=== PATIENT | female | born 1945 | race Caucasian/White ===

== ENCOUNTER → 2016-11-28 | Outpatient (CLI) | payer OTHER, BC ==
--- NOTE | 2016-11-28 15:22 | MAMMOGRAPHY REPORT ---
BILATERAL DIGITAL DIAGNOSTIC MAMMOGRAM TOMOSYNTHESIS WITH CAD: 11/28/2016 CLINICAL HISTORY: 70-year-old woman with a personal history of left breast cancer status post treatm ent 1 year ago. Patient presents for annual bilateral screening mammography. TECHNIQUE: Bilateral breast tomosynthesis in addition to standard 2D mammography was performed. Spo t magnification left CC and ML views were performed in the superior and inferior, medial and lateral breast. Current study was also evaluated with a Computer Aided Detection (CAD) system. COMPARISON: Comparison is made to exams dated: 11/29/2015 mammogram, 05/31/2016 mammogram, 11/22/2015 ma mmogram - [facility], and 10/17/2013 mammogram. BREAST COMPOSITION: There are scattered areas of fibroglandular density in both breasts. FINDINGS: A linear scar marker overlies the upper outer middle one third of the left breast, denoti ng the surgical scar from recent lumpectomy. There is expected underlying architectural distortion. No new suspicious mass, architectural distortion or suspicious calcifications are seen near the basurto rgical site. There is asymmetry and architectural distortion in the approximate 9:00 left breast. This asymmetry has been present and is unchanged on all available prior mammograms dating back to at least 2006, and is likely related to previous surgery. There are faint microcalcifications within this area of asymmetry that have also been present dating back to at least 2007. However, on the cu rrent tomosynthesis images the microcalcifications appear more conspicuous and somewhat linear. Alt chayito they could represent fat necrosis, definitive characterization with tissue sampling is recomme nded. No other new suspicious microcalcifications, new mass or focal architectural distortion is id entified bilaterally. IMPRESSION: ACR BI-RADS CATEGORY 4B: INTERMEDIATE SUSPICION FOR MALIGNANCY 1. Left breast stereotactic guided biopsy is recommended for a faint cluster of linear and amorphou s microcalcifications associated with a stable asymmetry in the 9:00 left breast. 2. Otherwise stable posttreatment changes in the left breast and stable mammographic appearance of the right breast, without mammographic evidence of malignancy. Pending benign pathology results, wo uld recommend another 6 month follow-up of the left breast for continued surveillance after treatmen t for breast cancer. Routine mammography of the right breast is recommended in 12 months. These results and recommendations were discussed with the patient at the time of the exam. She tent atively scheduled for left breast stereotactic biopsy prior to leaving our department. Approximately 10% of breast cancers are not detected with mammography. A negative mammographic repor t should not delay biopsy if a clinically suggestive mass is present. Amelie Albrecht M.D. ay/:11/28/2016 15:05:18 Perishable Freight Inspector: Lionel GARCIA([place])([place]), [facility] letter sent: Abnormal 4/5 BI-RADS Code: ACR BI-RADS Category 4B: Intermediate Suspicion For Malignancy
== END | disposition home or self-care (01) ==
LOC: C.MAMM 13:27
PROVIDERS: ATTEND Family Medicine
DX: R92.0 Mammographic microcalcification found on diagnostic imaging of breast (principal)

== ENCOUNTER → 2016-12-07 | Outpatient (CLI) | payer OTHER, BC ==
--- NOTE | 2016-12-07 13:32 | Discharge Instructions ---
Discharge Instructions Procedure Procedure Date: Dec 07, 2016. Reason for visit: Left Calcifications. Discharge Discharge Date: Dec 07, 2016. Discharge Diagnosis: status post breast biopsy Instructions Activity Recommendations: Additional Limitations (see below) Return to School/Work: no limitations Recommended Home Diet: No Limitations Provider Instructions: ACTIVITY RECOMMENDATIONS: * No lifting, pushing, pulling or exercising the affected side for three days. RETURN TO SCHOOL/WORK: * You may return to work/school after the procedure, but do not perform any strenuous activities for 24 to 48 hours. MEDICATIONS: * Tylenol (two 325 mg) every four to six hours if needed for mild pain (if not allergic to Tylenol). DIET: * Resume previous diet. SPECIAL CARE INSTRUCTIONS: * Keep biopsy site dry for 24 hours. May shower after 24 hours, but do not soak (bathe) incision. * May remove Tegaderm (plastic patch) tomorrow AFTER showering. * Leave the steri-strips on for one week. Allow the steri-strips to fall off by themselves. If not off after one week, you may remove them. You may place a Bandaid crosswise over the strips, if desired. * Apply ice 10 minutes on and 10 minutes off as needed. * Wear a bra at bedtime to sleep more comfortably for 2-3 days. * Your referring physician should have the results after approximately 5 to 7 business days. * Call for unusual bleeding, fever, drainage, etc or if you have any questions call during normal business hours or after hours call Dr Keller, [phone]. FOLLOW UP VISIT: Follow-up with Referring Physician as scheduled. Rogelio Wong Recommendations: Call your doctor if: * Temperature above 101 degrees * Pain not relieved by pain medicine ordered * There is increased drainage or redness from any incision * You have any unanswered questions or concerns. Your Doctors Instructions noted above were prepared by provider Neema Keller. Patient Signature Section: Patient Instructions Signature Page Haylie Tucker Patient (or Guardian) Signature/Date: I have read and understand the instructions given to me by my caregivers. Caregiver/RN/Doctor Signature/Date: The above-named patient and/or guardian has received patient instructions on this date. + Original Patient Signature Page (only) stays with chart. Please make copy for patient.
--- NOTE | 2016-12-07 15:18 | MAMMOGRAPHY REPORT ---
THIS REPORT HAS BEEN AMENDED. STEREOTACTIC GUIDED BIOPSY LEFT BREAST: 12/07/2016 CLINICAL HISTORY: Left 9:00 breast calcifications. PATIENT CONSENT: The procedure, risks, benefits, and alternatives of stereotactic biopsy with clip p lacement were discussed with the patient, and verbal and written consent was obtained. A timeout wa s performed immediately prior to the procedure. PROCEDURE DESCRIPTION: With stereotactic guidance, aseptic technique, and lidocaine as a local anest hetic (1% lidocaine to anesthetize the skin and 1% lidocaine with epinephrine to anesthetize the neftali per tissues), the area of concern was sampled multiple times with a 9-gauge vacuum-assisted biopsy n eedle (Suros Eviva). The path of approach was medial to lateral. The specimen radiograph demonstra lani possible faint calcifications present within the samples. A metallic marker clip was placed at the biopsy site. This was confirmed on postprocedure mammograms. Direct pressure was applied at th e biopsy site and hemostasis was readily achieved. The patient tolerated the procedure without comp lication. She was given wound care instructions. COMPARISON: Comparison is made to exams dated: 11/28/2016 mammogram, 05/31/2016 mammogram, 11/22/2015 ma mmogram, 11/29/2015 mammogram, 11/05/2014 mammogram, and 04/30/2014 mammogram - [facility]. IMPRESSION: STEREOTACTIC GUIDED BIOPSY Stereotactic biopsy of calcifications in the left 9:00 breast, with clip placement. Possible faint calcifications are seen within the samples. The patient will receive pathology results from her refe rring provider. The pathology results will be reviewed and an addendum will be made if there are further recommendat ions based on the pathology results. Neema Keller M.D. ah/:12/07/2016 13:57:13 Museum Security Chief: Alison Olvera, [facility] AMENDMENT: 12/13/2016 Neema Keller M.D. The pathology from stereotactic biopsy of left breast calcifications was reviewed on 12/13/2016. The pathology shows benign breast tissue with stromal fibrosis and hemosiderin deposition, which is con cordant with the imaging findings. Recommend follow-up diagnostic mammograms of the left breast in 6 months for continued surveillance after treatment for breast cancer.
--- NOTE | 2016-12-07 15:19 | MAMMOGRAPHY REPORT ---
UNILATERAL LEFT DIGITAL DIAGNOSTIC MAMMOGRAM: 12/07/2016 CLINICAL HISTORY: Status post stereotactic biopsy of left 9:00 breast calcifications. TECHNIQUE: Spot magnification left CC and ML views were obtained. COMPARISON: Comparison is made to exams dated: 05/31/2016 mammogram, 11/28/2016 mammogram, 11/22/2015 ma mmogram, 11/29/2015 mammogram, 11/05/2014 mammogram, and 04/30/2014 mammogram - [facility]. BREAST COMPOSITION: There are scattered areas of fibroglandular density in the left breast. FINDINGS: A new biopsy marker clip is seen in the region of the biopsied calcifications in the left 9:00 breast. No significant postbiopsy hematoma is seen. IMPRESSION: POST PROCEDURE IMAGING FOR MARKER PLACEMENT New biopsy marker clip status post stereotactic biopsy of left breast calcifications. Pathology res ults are pending. Approximately 10% of breast cancers are not detected with mammography. A negative mammographic repor t should not delay biopsy if a clinically suggestive mass is present. Neema Keller M.D. ah/:12/07/2016 13:58:24 Geodetic Technician: Alison Olvera, [facility] BI-RADS Code: Post Procedure Imaging For Marker Placement
--- NOTE | 2016-12-29 07:14 | CODING QUERY MEDICAL NECESSITY ---
SUPPORTING DIAGNOSIS NEEDED A supporting diagnosis is required for the test/procedure performed on this patient in order for us to be reimbursed by the patient's insurance. Please provide a supporting diagnosis for the following test/procedure listed below next to the test name along with your signature. *If there is no additional diagnosis for this patient that would support the following test/procedure please document that below next to the test/procedure. Test(s)/Procedure(s) that require a supporting diagnosis: * STEREOTACTIC BREAST BIOPSY DIAGNOSIS: * DOS: 12/07/16 Provider Signature: Date: Thank you Margaret Fink Health Information Management Once completed, please kindly fax back to [phone] For questions please call [phone]
== END | disposition home or self-care (01) ==
LOC: C.MAMM 12:28
PROVIDERS: ATTEND Family Medicine
DX: N60.32 Fibrosclerosis of left breast (principal)

== ENCOUNTER → 2017-03-07 | Outpatient (CLI) | payer OTHER, BC ==
[~2017-03-07] MED LIST: ALPR0.25 PO; ANAS1TAB6 PO; ASPCH81X PO; CALC-354 PO; EZET1TAB30 PO; METO100T44 PO; OLME40TA30 PO; SERT-234 PO; VERA180T33 PO
[2017-03-07 14:56] LABS: BASO % 0.5 %; BASO ABS # 0.03 K/uL (0-0.2); COMPLETE YES; EOS % 1.2 %; HEMATOCRIT 33.3 % (37-47); IG% 0.2 %; LYMPH % 40.4 %; MEAN CORPUSCULAR HEMOGLOBIN 30.5 pg (25-34); MEAN CORPUSCULAR HGB CONC 34.2 g/dl (32-36); MEAN PLATELET VOLUME 9.2 fL (7.4-10.4); NEUT % 51.7 %; PLATELET COUNT 242 K/uL (130-400); RED BLOOD COUNT 3.74 M/uL (4.2-5.4); WHITE BLOOD COUNT 5.69 K/uL (4.8-10.8)
== END | disposition home or self-care (01) ==
LOC: C.LABSPEC 14:05
PROVIDERS: ATTEND Family Medicine
DX: K92.1 Melena (principal)

== ENCOUNTER → 2017-05-30 | Outpatient (CLI) | payer OTHER, BC ==
[2017-05-30 14:11] LABS: BASO % 0.3 %; BASO ABS # 0.02 K/uL (0-0.2); COMPLETE YES; EOS % 1.2 %; HEMATOCRIT 41.1 % (37-47); LYMPH % 35.9 %; LYMPH ABS # 2.06 K/uL (1.2-3.4); MEAN CELL VOLUME 86.9 fL (80-100); MEAN CORPUSCULAR HEMOGLOBIN 29.8 pg (25-34); MEAN CORPUSCULAR HGB CONC 34.3 g/dl (32-36); MEAN PLATELET VOLUME 9.3 fL (7.4-10.4); MONO % 6.1 %; NEUT % 56.5 %; PLATELET COUNT 228 K/uL (130-400); RED BLOOD COUNT 4.73 M/uL (4.2-5.4); WHITE BLOOD COUNT 5.74 K/uL (4.8-10.8)
[2017-05-30 14:43] LABS: ALT/SGPT 44 U/L (12-78); AST/SGOT 29 U/L (15-37); BLOOD UREA NITROGEN 22 mg/dl (7-18); BUN/CREATININE RATIO 24.2 (10-20); CARBON DIOXIDE 34 mmol/L (21-32); CHLORIDE 101 mmol/L (98-107); GLUCOSE 142 mg/dl (70-99); POTASSIUM 3.3 mmol/L (3.5-5.1); SODIUM 140 mmol/L (136-145)
[2017-05-30 14:46] LABS: ALB/GLOB RATIO 1.1 (0.9-2); ALKALINE PHOSPHATASE 78 U/L (45-117); CHOLESTEROL 144 mg/dl (0-200); CHOLESTEROL/HDL RATIO 3.4; HDL CHOLESTEROL 42 mg/dl; LDL CHOLESTEROL CALCULATED 52 mg/dl; TRIGLYCERIDES 250 mg/dl (0-150); VERY LOW DENSITY LIPOPROT CALC 50 mg/dl
== END | disposition home or self-care (01) ==
LOC: C.LABSPEC 13:20
PROVIDERS: ATTEND Family Medicine
DX: I10 Essential (primary) hypertension (principal); E78.2 Mixed hyperlipidemia

== ENCOUNTER → 2017-06-11 | Outpatient (CLI) | payer OTHER, BC ==
--- NOTE | 2017-06-11 13:09 | MAMMOGRAPHY REPORT ---
UNILATERAL LEFT DIGITAL DIAGNOSTIC MAMMOGRAM TOMOSYNTHESIS WITH CAD: 06/11/2017 CLINICAL HISTORY: 71 year-old woman with a personal history of left breast cancer status post breast conservation treatment presents for follow-up in the left breast. She is more recently 6 months post benign stereotactic biopsy of microcalcifications in the medial left breast. TECHNIQUE: Left CC and MLO 2-D and tomosynthesis images, spot magnification left CC and ML views were obtained. Current study was also evaluated with a Computer Aided Detection (CAD) system. COMPARISON: Comparison is made to exams dated: 11/28/2016 mammogram, 05/31/2016 mammogram, 11/22/2015 ult rasound, 11/22/2015 mammogram, 11/05/2014 mammogram, and 04/30/2014 mammogram - [facility]. BREAST COMPOSITION: There are scattered areas of fibroglandular density in the left breast. FINDINGS: There is expected architectural distortion in the upper outer middle one third of the left breast, at the site of prior lumpectomy. There is stable asymmetry and associated faint amorphous mi crocalcifications in the approximate 9:00 left breast, with new associated dumbbell-shaped biopsy mar ker, denoting the site of recent benign stereotactic biopsy. No new suspicious mass, architectural d istortion or new suspicious microcalcifications are identified. IMPRESSION: ACR-BI-RADS CATEGORY 3: PROBABLY BENIGN Stable posttreatment and post biopsy changes in the left breast, without definite mammographic eviden ce of malignancy. The patient is due for bilateral mammography in 6 months, with continued close fol low-up of the left breast status post treatment for breast cancer. These results and recommendations were discussed with the patient at the time of the exam. Approximately 10% of breast cancers are not detected with mammography. A negative mammographic report should not delay biopsy if a clinically suggestive mass is present. Amelie Albrecht M.D. ay/:06/11/2017 10:24:15 Layout Operator: Saida CONNELLY)(M), [facility] letter sent: Follow Up Recommended 3 BI-RADS Code: ACR-BI-RADS Category 3: Probably Benign
== END | disposition home or self-care (01) ==
LOC: C.MAMM 08:58
PROVIDERS: ATTEND Family Medicine
DX: R92.2 Inconclusive mammogram (principal); Z85.3 Personal history of malignant neoplasm of breast

== ENCOUNTER → 2017-09-05 | Day surgery (SDC) | payer OTHER, BC ==
[2017-08-31 08:58] VITALS: Ht 162.6 cm; Wt 94.1 kg
[~2017-09-05] VITALS: Ht 162.6 cm; Wt 94.1 kg
[~2017-09-05] MED LIST changes: +500ML BSS 0.3ML EPI 1:1000PF IRRIG ONE; +ACETAMINOPHEN 325 MG TAB PO PRN; +AMVISC PLUS 0.8ML SYRINGE INT OCU ONE; +ATROPINE SULFATE 0.1 MG/ML 5ML SYR IV PRN; +AcetaZOLAMIDE 250 MG TAB PO SCH; +BETAXOLOL HCL 0.25% OP SUSP PER DROP CHARGE OPR SCH; +BRIMONIDINE TART 0.2% OP SOLN PER DROP CHARGE ONE; +BSS FLUSH ONE; +ENDOCOAT 0.85ML SYRINGE INT OCU ONE; +EpHEDrine SULFATE INJ 50 MG/ML AMP IV PRN; +EpINEphrine INJ 1MG/ML AMP 1 MG/ML AMP ONE; +LACTATED RINGER'S 1000ML 1,000 ML IV SCH; +LIDOCAINE 4% OP SOLN DROP CHARGE ONE; +LIDOCAINE 4% OP SOLN DROP CHARGE OPR SCH; +LIDOCAINE HCL 1% MPF 2 ML VIAL ONE; +MIDAZOLAM HCL 1 MG/ML 2ML VIAL ONE; +MIX: 4ML BSS 1ML EPI 1:1000 PF INSTIL ONE; +MOXIFLOXACIN OPH SOLN PER DROP CHARGE ONE; +OCUCOAT 1 ML SOLN IO ONE; +POVIDONE-IODINE OP SOLN 30 ML BTL ONE; +PROPARACAINE 0.5% OP SOLN PER DROP CHARGE OPR SCH; +TOBRAMYCIN/DEXAMETHASONE OPH OINT PER APPLN CHARGE ONE
--- NOTE | 2017-09-05 07:36 | History & Physical Bridge - SC ---
H&P Re-Evaluation Bridge Note: I have examined the patient, reviewed the History & Physical and in the interval since the performance of the History & Physical I have noted the following changes of clinical significance: No changes noted
[2017-09-05] MEDS: PHENYLEPHRINE HCL 2.5% OP SOLN PER DROP CHARGE OPR SCH ×2 (08:26→08:31)
[2017-09-05] MEDS: TROPICAMIDE 1% OP SOLN PER DROP CHARGE OPR SCH ×2 (08:27→08:32)
[2017-09-05] MEDS: CYCLOPENTOLATE HCL 1% OP SOLN PER DROP CHARGE OPR SCH ×2 (08:28→08:33)
[2017-09-05] MEDS: MOXIFLOXACIN OPH SOLN PER DROP CHARGE OPR SCH ×2 (08:29→08:39)
--- NOTE | 2017-09-05 09:21 | Discharge Instructions-SurgCtr ---
Discharge Instructions Date of Service Sep 05, 2017. Visit Reason for Visit: Right Cataract Discharge Discharge Diagnosis / Problem: lens implant right eye Discharge Goals Goal(s): Improve function Activity Recommendations Activity Limitations: resume your previous activity Lifting Limitations: no more than 10 pounds Exercise/Sports Limitations: gradually increase as tolerated May Resume Sexual Activity: when tolerated Shower/Bathe: tomorrow Driving or Machine Use: resume 1 day after discharge Anesthesia . Post Anesthesia Instructions: If you have had General Anesthesia or IV Sedation: * Do not drive today. * Resume driving when surgeon permits. * Do not make important decisions or sign legal documents today. * Call surgeon for: 1. Temperature elevations greater than 101 degrees F. 2. Uncontrollable pain. 3. Excessive bleeding. 4. Persistent nausea and vomiting. 5. Medication intolerance (nausea, vomiting or rash). * For nausea and vomiting use only clear liquids such as: tea, soda, bouillon until nausea subsides, then gradually increase diet as tolerated. * If you have any concerns or questions, call your surgeon's office. If physician is unavailable and it is an emergency, call 911 or go to the nearest emergency room. . Instructions / Follow-Up Instructions / Follow-Up ACTIVITY RECOMMENDATIONS: * Light activities. * Mild irritation and blurred vision are common for the first few days. * You may walk outside, read, watch television. * Redness around the white part of the eye is common. MEDICATIONS: Resume previous medications unless instructed otherwise by your surgeon. * Take white Diamox (Acetazolamide) tablet at 1 pm today. Start all eye drops at 1 pm today: * Eye drops (today and tomorrow): Prednisone - one drop in operative eye every 3 hours while awake Ofloxacin - one drop in operative eye every 3 hours while awake SPECIAL CARE INSTRUCTIONS: * Tape plastic shield over eye to sleep at night. Call your doctor at with any concerns or problems. FOLLOW UP VISIT: Follow-up with Dr Corado at [place] office as scheduled. Diet Recommendations Home Diet: no limitations Procedures Procedures Performed: cataract extraction with lens implant Pending Studies Studies pending at discharge: no Medical Emergencies . Who to Call and When: Medical Emergencies: If at any time you feel your situation is an emergency, please call 911 immediately. . Non-Emergent Contact Non-Emergency issues call your: Submarine Advisory Team Watch Officer Call Non-Emergent contact if: your pain is not controlled [phone] . . "Provider Documentation" section prepared by Josef Corado. .
--- NOTE | 2017-09-05 09:22 | [facility] Operative Report ---
Operative Report Date of Service Sep 05, 2017. Operative Report 1. PREOPERATIVE DIAGNOSIS: Senile nuclear cataract, right eye. 2. POSTOPERATIVE DIAGNOSIS: Senile nuclear cataract, right eye. 3. PROCEDURE: Phacoemulsification of right cataract with posterior chamber lens implant, type Bausch [employer] Lomb, model MI60L, power +15.0 diopters. ANESTHESIA: Local standby. SURGEON: Dr. Corado. COMPLICATIONS: None. OPERATING TIME: 10 minutes. 4. OPERATION AND FINDINGS: DESCRIPTION OF PROCEDURE: The right pupil was dilated. The anesthetic was administered using a topical technique. The right eye was prepped and draped. A speculum was placed. A clear corneal incision was formed. The chamber was filled with Amvisc Plus and Endocoat. Epinephrine solution was used. A paracentesis was placed. A capsulorrhexis was performed. The nucleus was hydrodissected. The lens was removed with phacoemulsification. Time was 2.32 seconds. The aspiration unit was used to remove the cortex. The capsule was filled with Amvisc Plus. The lens implant was folded and placed into the capsule. The incision was hydrated. The Amvisc was aspirated. The wound was secure. The chamber was deep. The pupil was round. Brimonidine, TobraDex ointment and Vigamox solution were placed. The speculum was removed. The patient was returned to the Recovery Room in stable condition. I attest to the content of the Intraoperative Record and any orders documented therein. Any exceptions are noted below. The scribe's documentation has been prepared in my presence, under my direction and personally reviewed by me in its entirety. I confirm that the note above accurately reflects all work, treatment, procedures, and medical decision making performed by me. I personally scribed for Josef Corado M.D. (SAMUEL) on 09/05/17 at 09:22. Electronically submitted by Claire Rock (AMELIA).
[2017-09-05 09:55] VITALS: BP 152/50; PULSE 47; O2SAT 96
--- NOTE | 2017-09-05 09:57 | Anesthesiology Progress Note ---
Anesthesia Post Op Note Date & Time Sep 05, 2017 at 09:57 Vital Signs Pain Intensity: 0 Vital Signs Past 12 Hours Date Time Temp Pulse Resp B/P (MAP) Pulse Ox O2 Delivery O2 Flow Rate FiO2 09/05/17 09:55 47 16 152/50 (84) 96 Room Air 09/05/17 09:22 36.4 40 16 164/79 (107) 93 Room Air 09/05/17 08:20 36.6 53 16 188/85 (119) 96 Room Air Notes Mental Status: alert / awake / arousable, participated in evaluation Pt Amnestic to Procedure: Yes Nausea / Vomiting: adequately controlled Pain: adequately controlled Airway Patency, RR, SpO2: stable & adequate BP & HR: stable & adequate Hydration State: stable & adequate Anesthetic Complications: no major complications apparent
== END | disposition home or self-care (01) ==
LOC: X.SURG 07:50
PROVIDERS: ATTEND Specialist
DX: H25.11 Age-related nuclear cataract, right eye (principal); F41.9 Anxiety disorder, unspecified; E66.9 Obesity, unspecified; Z85.3 Personal history of malignant neoplasm of breast; Z79.82 Long term (current) use of aspirin; Z98.890 Other specified postprocedural states; Z79.899 Other long term (current) drug therapy

== ENCOUNTER → 2017-09-26 | Day surgery (SDC) | payer OTHER, BC ==
[2017-09-20 11:30] VITALS: Ht 162.6 cm; Wt 94.1 kg
[~2017-09-26] VITALS: Ht 162.6 cm; Wt 94.1 kg
[~2017-09-26] MED LIST changes: +BETAXOLOL HCL 0.25% OP SUSP PER DROP CHARGE OPL SCH; -BETAXOLOL HCL 0.25% OP SUSP PER DROP CHARGE OPR SCH; -LACTATED RINGER'S 1000ML 1,000 ML IV SCH; +LACTATED RINGER'S 1000ML 500 ML IV SCH; +LIDOCAINE 4% OP SOLN DROP CHARGE OPL SCH; -LIDOCAINE 4% OP SOLN DROP CHARGE OPR SCH; +PROPARACAINE 0.5% OP SOLN PER DROP CHARGE OPL SCH; -PROPARACAINE 0.5% OP SOLN PER DROP CHARGE OPR SCH
[2017-09-26] MEDS: PHENYLEPHRINE HCL 2.5% OP SOLN PER DROP CHARGE OPL SCH ×2 (07:59→08:04)
[2017-09-26] MEDS: TROPICAMIDE 1% OP SOLN PER DROP CHARGE OPL SCH ×2 (08:00→08:06)
[2017-09-26] MEDS: CYCLOPENTOLATE HCL 1% OP SOLN PER DROP CHARGE OPL SCH ×2 (08:01→08:07)
[2017-09-26] MEDS: MOXIFLOXACIN OPH SOLN PER DROP CHARGE OPL SCH ×2 (08:02→08:13)
--- NOTE | 2017-09-26 08:44 | Discharge Instructions-SurgCtr ---
Discharge Instructions Date of Service Sep 26, 2017. Visit Reason for Visit: Cataract Left Eye Discharge Discharge Diagnosis / Problem: lens implant left eye Discharge Goals Goal(s): Improve function Activity Recommendations Activity Limitations: resume your previous activity Lifting Limitations: no more than 10 pounds Exercise/Sports Limitations: gradually increase as tolerated May Resume Sexual Activity: when tolerated Shower/Bathe: tomorrow Driving or Machine Use: resume 1 day after discharge Anesthesia . Post Anesthesia Instructions: If you have had General Anesthesia or IV Sedation: * Do not drive today. * Resume driving when surgeon permits. * Do not make important decisions or sign legal documents today. * Call surgeon for: 1. Temperature elevations greater than 101 degrees F. 2. Uncontrollable pain. 3. Excessive bleeding. 4. Persistent nausea and vomiting. 5. Medication intolerance (nausea, vomiting or rash). * For nausea and vomiting use only clear liquids such as: tea, soda, bouillon until nausea subsides, then gradually increase diet as tolerated. * If you have any concerns or questions, call your surgeon's office. If physician is unavailable and it is an emergency, call 911 or go to the nearest emergency room. . Instructions / Follow-Up Instructions / Follow-Up ACTIVITY RECOMMENDATIONS: * Light activities. * Mild irritation and blurred vision are common for the first few days. * You may walk outside, read, watch television. * Redness around the white part of the eye is common. MEDICATIONS: Resume previous medications unless instructed otherwise by your surgeon. * Take white Diamox (Acetazolamide) tablet at 1 pm today. Start all eye drops at 1 pm today: * Eye drops (today and tomorrow): Prednisone - one drop in operative eye every 3 hours while awake Ofloxacin - one drop in operative eye every 3 hours while awake SPECIAL CARE INSTRUCTIONS: * Tape plastic shield over eye to sleep at night. Call your doctor at with any concerns or problems. FOLLOW UP VISIT: Follow-up with Dr Corado at [facility] as scheduled. Diet Recommendations Home Diet: no limitations Procedures Procedures Performed: cataract extraction with lens implant Pending Studies Studies pending at discharge: no Medical Emergencies . Who to Call and When: Medical Emergencies: If at any time you feel your situation is an emergency, please call 911 immediately. . Non-Emergent Contact Non-Emergency issues call your: Network Mgr Call Non-Emergent contact if: your pain is not controlled [phone] . . "Provider Documentation" section prepared by Josef Corado. .
--- NOTE | 2017-09-26 08:46 | [facility] Operative Report ---
Operative Report Date of Service Sep 26, 2017. Operative Report 1. PREOPERATIVE DIAGNOSIS: Senile nuclear cataract, left eye. 2. POSTOPERATIVE DIAGNOSIS: Senile nuclear cataract, left eye. 3. PROCEDURE: Phacoemulsification of left cataract with posterior chamber lens implant, type Bausch [employer] Lomb, model MI60L, power +17.0 diopters. ANESTHESIA: Local standby. SURGEON: Dr. Corado. COMPLICATIONS: None. OPERATING TIME: 10 minutes. 4. OPERATION AND FINDINGS: DESCRIPTION OF PROCEDURE: The left pupil was dilated. The anesthetic was administered using a topical technique. The left eye was prepped and draped. A speculum was placed. A clear corneal incision was formed. The chamber was filled with Amvisc Plus and Endocoat. Epinephrine solution was used. A paracentesis was placed. A capsulorrhexis was performed. The nucleus was hydrodissected. The lens was removed with phacoemulsification. Time was 2.16 seconds. The aspiration unit was used to remove the cortex. The capsule was filled with Amvisc Plus. The lens implant was folded and placed into the capsule. The incision was hydrated. The Amvisc was aspirated. The wound was secure. The chamber was deep. The pupil was round. Brimonidine, TobraDex ointment and Vigamox solution were placed. The speculum was removed. The patient was returned to the Recovery Room in stable condition. I attest to the content of the Intraoperative Record and any orders documented therein. Any exceptions are noted below. The scribe's documentation has been prepared in my presence, under my direction and personally reviewed by me in its entirety. I confirm that the note above accurately reflects all work, treatment, procedures, and medical decision making performed by me. I personally scribed for Josef Corado M.D. (SAMUEL) on 09/26/17 at 08:46. Electronically submitted by Claire Rock (AMELIA).
[2017-09-26 08:50] VITALS: TEMP 36.3
--- NOTE | 2017-09-26 09:08 | Anesthesia Progress Nt - [facility] ---
Anesthesia Post Op Note Date & Time Sep 26, 2017 at 09:08 Vital Signs Pain Intensity: 0 Vital Signs Past 12 Hours Date Time Temp Pulse Resp B/P (MAP) Pulse Ox O2 Delivery O2 Flow Rate FiO2 09/26/17 08:50 36.3 46 18 161/88 (112) 94 Room Air 09/26/17 07:50 36.6 46 18 159/95 (116) 94 Room Air Notes Mental Status: alert / awake / arousable, participated in evaluation Pt Amnestic to Procedure: Yes Nausea / Vomiting: adequately controlled Pain: adequately controlled Airway Patency, RR, SpO2: stable & adequate BP & HR: stable & adequate Hydration State: stable & adequate Anesthetic Complications: no major complications apparent
[2017-09-26 09:14] VITALS: O2SAT 97
[2017-09-26 09:29] VITALS: BP 155/87; PULSE 50
== END | disposition home or self-care (01) ==
LOC: X.SURG 07:05
PROVIDERS: ATTEND Specialist
DX: H25.12 Age-related nuclear cataract, left eye (principal); I10 Essential (primary) hypertension; E78.00 Pure hypercholesterolemia, unspecified; F41.9 Anxiety disorder, unspecified; E66.9 Obesity, unspecified; E78.5 Hyperlipidemia, unspecified; M06.9 Rheumatoid arthritis, unspecified; Z85.3 Personal history of malignant neoplasm of breast; Z79.82 Long term (current) use of aspirin
CPT/HCPCS: 0474T; 66984

== ENCOUNTER → 2017-11-23 | Outpatient (CLI) | payer OTHER, BC ==
[~2017-11-23] MED LIST changes: -500ML BSS 0.3ML EPI 1:1000PF IRRIG ONE; -ACETAMINOPHEN 325 MG TAB PO PRN; -AMVISC PLUS 0.8ML SYRINGE INT OCU ONE; -ATROPINE SULFATE 0.1 MG/ML 5ML SYR IV PRN; -AcetaZOLAMIDE 250 MG TAB PO SCH; -BETAXOLOL HCL 0.25% OP SUSP PER DROP CHARGE OPL SCH; -BRIMONIDINE TART 0.2% OP SOLN PER DROP CHARGE ONE; -BSS FLUSH ONE; -ENDOCOAT 0.85ML SYRINGE INT OCU ONE; -EpHEDrine SULFATE INJ 50 MG/ML AMP IV PRN; -EpINEphrine INJ 1MG/ML AMP 1 MG/ML AMP ONE; -LACTATED RINGER'S 1000ML 500 ML IV SCH; -LIDOCAINE 4% OP SOLN DROP CHARGE ONE; -LIDOCAINE 4% OP SOLN DROP CHARGE OPL SCH; -LIDOCAINE HCL 1% MPF 2 ML VIAL ONE; -MIDAZOLAM HCL 1 MG/ML 2ML VIAL ONE; -MIX: 4ML BSS 1ML EPI 1:1000 PF INSTIL ONE; -MOXIFLOXACIN OPH SOLN PER DROP CHARGE ONE; -OCUCOAT 1 ML SOLN IO ONE; -POVIDONE-IODINE OP SOLN 30 ML BTL ONE; -PROPARACAINE 0.5% OP SOLN PER DROP CHARGE OPL SCH; -TOBRAMYCIN/DEXAMETHASONE OPH OINT PER APPLN CHARGE ONE
--- NOTE | 2017-11-23 12:19 | DIAGNOSTIC IMAGING REPORT ---
SI JOINTS 3 OR MORE VIEWS CLINICAL HISTORY: LOW BACK pain COMPARISON STUDY: None FINDINGS: Patent sacroiliac joints. No evidence of bony ankylosis or significant sclerosis. Sacral foramina are symmetric bilaterally. IMPRESSION: Negative study of the sacroiliac joints The above report was generated using voice recognition software. It may contain grammatical, syntax or spelling errors. Electronically signed by: Vin De La Rosa M.D. 11/23/2017 12:18 PM Dictated Date/Time: 11/23/2017 12:16 PM
--- NOTE | 2017-11-23 12:21 | DIAGNOSTIC IMAGING REPORT ---
L-SPINE MIN 4 VIEWS ROUTINE CLINICAL HISTORY: Low back pain with left leg radiculopathy. COMPARISON STUDY: No previous studies for comparison. FINDINGS: There is no pathologic bowel dilatation. There are multiple pelvic basin calcifications likely representing phlebolith. There is a mild lumbar levoscoliosis. No acute fractures are visualized. There is a grade 1 spondylolisthesis of L3 on L4. IMPRESSION: 1. Grade 1 spondylolisthesis of L3 and L4 2. No fractures identified Electronically signed by: Charly Woods M.D. 11/23/2017 12:19 PM Dictated Date/Time: 11/23/2017 12:18 PM
== END | disposition home or self-care (01) ==
LOC: C.LAB 11:47
PROVIDERS: ATTEND Family Medicine
DX: M54.5 Low back pain (principal)

== ENCOUNTER → 2017-12-03 | Outpatient (CLI) | payer OTHER, BC ==
--- NOTE | 2017-12-03 13:10 | DIAGNOSTIC IMAGING REPORT ---
ADDENDUM Comparison is made to the SI joint radiographs of 11/23/2017. The mentioned degenerative changes of the SI joints appear unchanged from comparison. Electronically signed by: Stanley Davila M.D. 12/04/2017 10:23 AM Dictated Date/Time: 12/04/2017 10:22 AM ORIGINAL REPORT R HIP UNILATERAL 2 VIEWS, L HIP UNILATERAL 2 VIEWS HISTORY: 71 years-old Female PAIN IN UNSPECIFIED HIP bilateral hip pain without reported trauma COMPARISON: None available TECHNIQUE: 2 views of the bilateral hips for a total of 4 images FINDINGS: RIGHT: Mild to moderate degenerative changes of the right femoral acetabular joint with moderate right SI joint degenerative changes. The bones appear mildly demineralized. There is no acute fracture or dislocation identified. Calcifications of the pelvis suggest phleboliths. LEFT: Mild to moderate degenerative changes of the left femoral acetabular joint with moderate left SI joint degenerative changes. The bones appear mildly demineralized. There is no acute fracture or dislocation. Phleboliths are noted within the pelvis. IMPRESSION: No acute fracture or dislocation. The above report was generated using voice recognition software. It may contain grammatical, syntax or spelling errors. Electronically signed by: Stanley Davila M.D. 12/03/2017 1:09 PM Dictated Date/Time: 12/03/2017 1:07 PM
== END | disposition home or self-care (01) ==
LOC: C.RAD 12:11
PROVIDERS: ATTEND Family Medicine
DX: M25.552 Pain in left hip (principal)

== ENCOUNTER → 2017-12-10 | Outpatient (CLI) | payer OTHER, BC ==
--- NOTE | 2017-12-10 13:56 | MAMMOGRAPHY REPORT ---
BILATERAL DIGITAL DIAGNOSTIC MAMMOGRAM TOMOSYNTHESIS WITH CAD: 12/10/2017 CLINICAL HISTORY: History of left breast cancer status post lumpectomy. Also history of benign stere otactic biopsy in the left medial breast November 2016. TECHNIQUE: Breast tomosynthesis in addition to standard 2D mammography was performed. Current study was also evaluated with a Computer Aided Detection (CAD) system. Bilateral CC and MLO 2D and tomosyn thesis images and spot magnification left CC and MLO views were obtained. COMPARISON: Comparison is made to exams dated: 06/11/2017 mammogram, 12/07/2016 mammogram, 12/07/2016 s tereotactic biopsy, 11/28/2016 mammogram, 05/31/2016 mammogram, and 11/29/2015 mammogram - [facility]. BREAST COMPOSITION: There are scattered areas of fibroglandular density in both breasts. FINDINGS: There are stable post surgical changes in the left upper outer quadrant posteriorly at the site of prior lumpectomy. There is also a stable asymmetry, postsurgical architectural distortion, a nd faint amorphous calcifications with an associated biopsy clip in the left medial breast at approxi mately 9:00 at the site of remote surgery; the calcifications in this region were recently biopsied a nd yielded benign pathology. Mild diffuse left breast skin thickening is progressively decreased and is likely related to prior radiation therapy. The remainder of both breasts are stable compared to prior exams, without suspicious masses, calcifications, or areas of architectural distortion noted. IMPRESSION: ACR BI-RADS CATEGORY 2: BENIGN Stable posttreatment changes in the left breast, without mammographic evidence of malignancy in eithe r breast. A 1 year screening mammogram is recommended. The patient has been verbally notified of th e results. Approximately 10% of breast cancers are not detected with mammography. A negative mammographic report should not delay biopsy if a clinically suggestive mass is present. Neema Keller M.D. /:12/10/2017 09:44:20 Chief Deputy: Alison Olevra, [facility] letter sent: Normal 1/2 BI-RADS Code: ACR BI-RADS Category 2: Benign
== END | disposition home or self-care (01) ==
LOC: C.MAMM 09:09
PROVIDERS: ATTEND Family Medicine
DX: Z08 Encounter for follow-up examination after completed treatment for malignant neoplasm (principal); Z85.3 Personal history of malignant neoplasm of breast

== ENCOUNTER → 2018-01-29 | Outpatient (CLI) | payer OTHER, BC ==
[~2018-01-29] MED LIST changes: -ANAS1TAB6 PO; +ANAS1TAB7 PO
[2018-01-29 13:25] LABS: BASO % 0.1 %; BASO ABS # 0.01 K/uL (0-0.2); EOS % 1.2 %; EOS ABS # 0.09 K/uL (0-0.5); HEMATOCRIT 39.2 % (37-47); HEMOGLOBIN 14.2 g/dL (12.0-16.0); IG# 0.01 K/uL (0.00-0.02); LYMPH % 18.9 %; LYMPH ABS # 1.42 K/uL (1.2-3.4); MEAN CELL VOLUME 85.2 fL (80-100); MEAN CORPUSCULAR HEMOGLOBIN 30.9 pg (25-34); MEAN CORPUSCULAR HGB CONC 36.2 g/dl (32-36); MEAN PLATELET VOLUME 9.1 fL (7.4-10.4); MONO % 6.6 %; NEUT % 73.1 %; NEUT ABS # 5.49 K/uL (1.4-6.5); PLATELET COUNT 274 K/uL (130-400); RED CELL DISTRIBUTION WIDTH CV 12.5 % (11.5-14.5); RED CELL DISTRIBUTION WIDTH SD 38.5 fL (36.4-46.3); WHITE BLOOD COUNT 7.52 K/uL (4.8-10.8)
[2018-01-29 14:00] LABS: ALBUMIN 3.8 gm/dl (3.4-5.0); ALT/SGPT 54 U/L (12-78); AST/SGOT 41 U/L (15-37); BLOOD UREA NITROGEN 38 mg/dl (7-18); CALCIUM 9.3 mg/dl (8.5-10.1); CARBON DIOXIDE 31 mmol/L (21-32); CREATININE 1.48 mg/dl (0.60-1.20); GLUCOSE 274 mg/dl (70-99); POTASSIUM 3.1 mmol/L (3.5-5.1); SODIUM 136 mmol/L (136-145)
[2018-01-29 14:10] LABS: ALKALINE PHOSPHATASE 68 U/L (45-117); TOTAL PROTEIN 7.4 gm/dl (6.4-8.2)
== END | disposition home or self-care (01) ==
LOC: C.LABSPEC 12:59
PROVIDERS: ATTEND Family Medicine
DX: R53.83 Other fatigue (principal); I10 Essential (primary) hypertension

== ENCOUNTER → 2018-02-11 | Outpatient (CLI) | payer OTHER, BC ==
[2018-02-11 15:49] LABS: ALBUMIN 3.6 gm/dl (3.4-5.0); ALKALINE PHOSPHATASE 58 U/L (45-117); ALT/SGPT 37 U/L (12-78); AST/SGOT 23 U/L (15-37); BLOOD UREA NITROGEN 41 mg/dl (7-18); CALCIUM 9.2 mg/dl (8.5-10.1); CARBON DIOXIDE 29 mmol/L (21-32); CREATININE 1.21 mg/dl (0.60-1.20); GLUCOSE 166 mg/dl (70-99); POTASSIUM 3.1 mmol/L (3.5-5.1); SODIUM 138 mmol/L (136-145); TOTAL PROTEIN 7.6 gm/dl (6.4-8.2)
== END | disposition home or self-care (01) ==
LOC: C.LABSPEC 13:40
PROVIDERS: ATTEND Family Medicine
DX: E11.9 Type 2 diabetes mellitus without complications (principal)

== ENCOUNTER → 2018-04-16 | Outpatient (CLI) | payer OTHER, BC ==
[2018-04-16 14:19] LABS: BASO % 0.2 %; BASO ABS # 0.01 K/uL (0-0.2); EOS % 1.4 %; EOS ABS # 0.09 K/uL (0-0.5); HEMATOCRIT 35.7 % (37-47); HEMOGLOBIN 12.4 g/dL (12.0-16.0); IG# 0.01 K/uL (0.00-0.02); LYMPH % 29.9 %; LYMPH ABS # 1.86 K/uL (1.2-3.4); MEAN CELL VOLUME 87.7 fL (80-100); MEAN CORPUSCULAR HEMOGLOBIN 30.5 pg (25-34); MEAN CORPUSCULAR HGB CONC 34.7 g/dl (32-36); MEAN PLATELET VOLUME 9.7 fL (7.4-10.4); MONO % 6.6 %; MONO ABS # 0.41 K/uL (0.11-0.59); NEUT % 61.7 %; NEUT ABS # 3.85 K/uL (1.4-6.5); PLATELET COUNT 272 K/uL (130-400); RED CELL DISTRIBUTION WIDTH CV 12.3 % (11.5-14.5); RED CELL DISTRIBUTION WIDTH SD 39.3 fL (36.4-46.3); WHITE BLOOD COUNT 6.23 K/uL (4.8-10.8)
[2018-04-16 14:45] LABS: ALKALINE PHOSPHATASE 58 U/L (45-117); ALT/SGPT 30 U/L (12-78); AST/SGOT 20 U/L (15-37); BLOOD UREA NITROGEN 37 mg/dl (7-18); CALCIUM 9.3 mg/dl (8.5-10.1); CARBON DIOXIDE 31 mmol/L (21-32); CHOLESTEROL 140 mg/dl (0-200); CREATININE 1.11 mg/dl (0.60-1.20); GLUCOSE 120 mg/dl (70-99); LDL CHOLESTEROL CALCULATED 52 mg/dl; POTASSIUM 3.2 mmol/L (3.5-5.1); SODIUM 141 mmol/L (136-145); TOTAL PROTEIN 7.5 gm/dl (6.4-8.2)
[2018-04-17 06:00] LABS: HEMOGLOBIN A1C 6.6 % (4.5-5.6)
== END | disposition home or self-care (01) ==
LOC: C.LABSPEC 14:03
PROVIDERS: ATTEND Family Medicine
DX: E11.9 Type 2 diabetes mellitus without complications (principal); I10 Essential (primary) hypertension

== ENCOUNTER 2024-02-29 06:09 | Inpatient (IN) ==
--- NOTE | 2024-02-08 15:57 | Anesthesiology Consultation ---
Date of Service February 08, 2024 Assessment & Plan (1) Encounter for pre-operative examination: Plan - check BSG am DOS. 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 Chart Review Chart Review: Acceptable Risk for Surgery and Patient NOT seen in Pre Admission Testing History Surgery Operation Date: 02/29/24 07:45 Proposed Procedures p L3-S1 Decompression and Fusion with Spinal Cord Monitoring - Harshil Cummings DO Height/Weight Height: 5 ft 4 in Weight: 90.265 kg Allergies Allergy/AdvReac Type Severity Reaction Status Date / Time No Known Drug Allergies Allergy Unknown . Verified 02/08/24 15:05 Medications Home Medications Medication Instructions Recorded Confirmed Last Taken acetaminophen 500 mg tablet 1,000 mg PO BID PRN Pain 02/08/24 02/08/24 Unknown (Tylenol Extra Strength) alprazolam 0.25 mg tablet 0.25 mg PO TID PRN Anxiety 02/08/24 02/08/24 Unknown aspirin 81 mg capsule 81 mg PO QAM 02/08/24 02/08/24 Unknown calcium carbonate 600 mg-vitamin 1 tab PO QAM 02/08/24 02/08/24 Unknown D3 20 mcg (800 unit) tablet (Caltrate with Vitamin D3) empagliflozin 25 mg tablet 25 mg PO HS 02/08/24 02/08/24 Unknown (Jardiance) ezetimibe 10 mg-simvastatin 20 mg 1 tab PO HS 02/08/24 02/08/24 Unknown tablet irbesartan 300 1 tab PO [facility] 02/08/24 02/08/24 Unknown mg-hydrochlorothiazide 12.5 mg tablet metoprolol succinate 100 mg 100 mg PO M 02/08/24 02/08/24 Unknown tablet,extended release 24 hr omeprazole 20 mg capsule,delayed 20 mg PO BID 02/08/24 02/08/24 Unknown release sertraline 100 mg tablet 100 mg PO HS 02/08/24 02/08/24 Unknown verapamil 180 mg tablet,extended 180 mg PO HS 02/08/24 02/08/24 Unknown release Past Medical History Medical History Anxiety Chronic back pain Diabetes mellitus, type 2 NIDDM GERD (gastroesophageal reflux disease) History of kidney stones no surgical intervention. passed on own. [place] (hard of hearing) Hx of breast cancer (2016) left - treated with radiation and lumpectomy Hx of gastric ulcer Hyperlipidemia Hypertension Osteoarthritis Past Family History Family History Other No family history of adverse response to anesthesia Past Surgical History Surgical History History of ankle surgery left History of cataract surgery bilateral History of colonoscopy History of esophagogastroduodenoscopy (EGD) History of tonsillectomy S/P epidural steroid injection Social History Smoking Status: Never smoker Do You Dip or Chew Tobacco: No Hx Alcohol Use: No Hx Substance Use: No substance use type: does not use Lab Results Anesthesia Preop Results Results Anesthesia Widget: WBC 5.99 K/ul (4.8-10.8) 02/07/24 Hgb 12.3 g/dl (12.0-16.0) 02/07/24 Hct 37.7 % (37.0-47.0) 02/07/24 Plt 315 K/uL (130-400) 02/07/24 Na 138 mmol/L (136-145) 02/07/24 K 3.5 mmol/L (3.5-5.1) 02/07/24 Cl 101 mmol/L (98-107) 02/07/24 CO2 29 mmol/L (21-32) 02/07/24 BUN 33 mg/dl (6-23) H 02/07/24 Creat 1.21 mg/dl (0.6-1.2) H 02/07/24 Glucose Level 212 mg/dl (70-99(Fasting)) H 02/07/24 PT 9.8 Seconds (9.0-12.0) 02/07/24 PTT 26 Seconds (21-31) 02/07/24 INR 0.9 (0.9-1.1) 02/07/24 Urine Color Yellow 02/07/24 Urine Appearance Clear (Clear) 02/07/24 Urine pH 5.5 (4.5-7.5) 02/07/24 Urine Specific [place] 1.032 (1.000-1.030) H 02/07/24 Urine Protein Trace (Negative) H 02/07/24 Urine Glucose (UA) 3+ (Negative) H 02/07/24 Urine Ketones Trace (Negative) H 02/07/24 Urine Blood Negative (Negative) 02/07/24 Urine Nitrite Negative (Negative) 02/07/24 Urine Bilirubin Negative (Negative) 02/07/24 Urine Urobilinogen Negative (Negative) 02/07/24 Urine Leukocyte Esterase Negative (Negative) 02/07/24 Urine WBC (Auto) 11-20 /hpf (0-5) H 02/07/24 Urine RBC (Auto) 0-2 /hpf (0-2) 02/07/24 Urine Hyaline Casts (Auto) 3-5 /lpf (0-2) H 02/07/24 Urine Epithelial Cells (Auto) 6-10 /hpf (0-2) H 02/07/24 Urine Bacteria (Auto) None Seen (None Seen) 02/07/24 Blood Type B Positive 02/07/24 Antibody Screen NEGATIVE 02/07/24 Testing Electrocardiogram Date: 02/07/24 Sinus bradycardia, rate [address] and T wave abnormality Chest X-Ray Date: 02/07/24 No acute process.
[2024-02-29] MEDS ORDERED: PROPOFOL IV EMULSION 10 MG/ML 20 ML VIAL IV ONE (06:56)
[2024-02-29] MEDS ORDERED: fentaNYL citrate PF 100 MCG/2 ML VIAL ONE (06:56)
[2024-02-29] MEDS ORDERED: ONDANSETRON INJ 2 MG/ML 2 ML VIAL ONE (06:56)
[2024-02-29] MEDS ORDERED: ROCURONIUM BROMIDE 10 MG/ML 5 ML VIAL IV ONE (06:56)
[2024-02-29] MEDS ORDERED: DexMEDEtomidine HCL IV 100 MCG/ML VIAL IV ONE (06:56)
[2024-02-29] MEDS ORDERED: DEXAMETHASONE SOD INJ 4 MG/ML VIAL ONE (06:56)
[2024-02-29] MEDS ORDERED: KETAMINE HCL 10MG/ML SYR ONE (07:07)
[2024-02-29] MEDS ORDERED: MIDAZOLAM HCL 1 MG/ML 2ML VIAL ONE (07:07)
[2024-02-29] MEDS: ACETAMINOPHEN 500 MG TAB PO SCH (07:11)
[2024-02-29] MEDS: CeleBREX 200 MG CAP PO SCH (07:11)
[2024-02-29] MEDS: LR 15ML/HR IV SCH (07:11)
[2024-02-29] MEDS: GABAPENTIN 300 MG CAP PO SCH (07:11)
[2024-02-29] MEDS: LR 60ML/HR IV SCH (07:11)
[2024-02-29] MEDS ORDERED: ACETAMINOPHEN 1000 MG/100 ML IV IV ONE (07:15)
[2024-02-29] MEDS ORDERED: ATROPINE SULFATE 0.1 MG/ML 10ML SYR IV PRN (07:35)
[2024-02-29] MEDS ORDERED: HYDROmorphone INJ 2 MG/ML SYR/VIAL IV PRN (07:35)
[2024-02-29] MEDS ORDERED: ONDANSETRON INJ 2 MG/ML 2 ML VIAL IV PRN ×2 (07:35→12:53)
[2024-02-29] MEDS ORDERED: fentaNYL citrate PF 100 MCG/2 ML VIAL IV PRN (07:35)
[2024-02-29] MEDS ORDERED: PROMETHAZINE HCL 6.25 MG in SODIUM CHLORIDE 0.9% 50 ML IV PRN (07:35)
[2024-02-29] MEDS ORDERED: ePHEDrine sulfate 50 MG/ML AMP IV PRN (07:35)
--- NOTE | 2024-02-29 07:42 | History & Physical Bridge Note ---
Date of Service February 29, 2024 History & Physical Bridge Note I have examined the patient, reviewed the History & Physical and in the interval since the performance of the History & Physical I have noted the following changes of clinical significance: no changes noted
--- NOTE | 2024-02-29 07:43 | History & Physical Report ---
Date of Service February 29, 2024 Assessment & Plan (1) Neurogenic claudication due to lumbar spinal stenosis: Plan: L3-S1 decompression and fusion History of Present Illness Chief Complaint: Back and bilateral leg pain Primary Care Provider: Jermaine Tucker DO This is a 78-year-old female presents chronic persistent back and bilateral leg pain and failing since course of nonoperative care she is here for surgical invention. Allergies Allergy/AdvReac Type Severity Reaction Status Date / Time No Known Drug Allergies Allergy Unknown . Verified 02/29/24 06:55 Home Medications Medication Instructions Recorded Confirmed Type acetaminophen 500 mg tablet 1,000 mg PO BID PRN Pain 02/08/24 02/29/24 History (Tylenol Extra Strength) alprazolam 0.25 mg tablet (Xanax) 0.25 mg PO TID PRN Anxiety 02/08/24 02/29/24 History aspirin 81 mg capsule 81 mg PO QAM 02/08/24 02/29/24 History calcium carbonate 600 mg-vitamin 1 tab PO QAM 02/08/24 02/29/24 History D3 20 mcg (800 unit) tablet (Caltrate with Vitamin D3) empagliflozin 25 mg tablet 25 mg PO HS 02/08/24 02/29/24 History (Jardiance) ezetimibe 10 mg-simvastatin 20 mg 1 tab PO HS 02/08/24 02/29/24 History tablet (Vytorin) irbesartan 300 1 tab PO QAM 02/08/24 02/29/24 History mg-hydrochlorothiazide 12.5 mg tablet (Avalide) metoprolol succinate 100 mg 100 mg PO QAM 02/08/24 02/29/24 History tablet,extended release 24 hr omeprazole 20 mg capsule,delayed 20 mg PO BID 02/08/24 02/29/24 History release sertraline 100 mg tablet (Zoloft) 100 mg PO HS 02/08/24 02/29/24 History verapamil 180 mg tablet,extended 180 mg PO HS 02/08/24 02/29/24 History release Past Med/Surg History Problem List (Updated 02/29/24 @ 07:43 by Harshil Cummings DO) Neurogenic claudication due to lumbar spinal stenosis Encounter for pre-operative examination Medical History Anxiety Chronic back pain Diabetes mellitus, type 2 NIDDM GERD (gastroesophageal reflux disease) History of kidney stones no surgical intervention. passed on own. [place] (hard of hearing) Hx of breast cancer (2016) left - treated with radiation and lumpectomy Hx of gastric ulcer Hyperlipidemia Hypertension Osteoarthritis Surgical History History of ankle surgery left History of cataract surgery bilateral History of colonoscopy History of esophagogastroduodenoscopy (EGD) History of tonsillectomy S/P epidural steroid injection Family History Other No family history of adverse response to anesthesia Social History Smoking Status: Never smoker Second Hand Exposure: No; Do You Dip or Chew Tobacco: No; Tobacco Cessation Education Requested by Patient: No Hx Alcohol Use: No Hx Substance Use: No Preferred Language: Citizen Of [place] Communication Ability: Effective [employer] Job Titles Required: No Beliefs That Will Affect Care: None Current Living Situation: Spouse Other Information That Helps Us Care for You: No Feels Safe at Home: Yes Safety Concerns: Feels Safe At This Time Assistive Devices: Glasses and Hearing Aid - Bilateral Physical Exam Physical Exam: Patient is alert and oriented Heart regular in rhythm Lungs clear Results & Data Results & Data Vital Signs (Past 12 Hours) Vital Signs Temp Pulse Resp BP Pulse Ox O2 Del Method 02/29/24 06:55 36.5 C 48 L 18 195/91 H 94 Room Air
[2024-02-29] MEDS: ceFAZolin 2000MG 2,000 MG/15 ML SYR IV SCH ×2 (07:51→16:24)
[2024-02-29] MEDS: BUPIVACAINE/EPINEPHRINE 0.25% 1:200,000 30 ML VIAL ONE (08:37)
[2024-02-29] MEDS: ceFAZolin 330 MG/ML 1 GM VIAL ONE (08:37)
[2024-02-29] MEDS ORDERED: SUGAMMADEX SODIUM 200 MG/2 ML VIAL IV ONE (09:25)
[2024-02-29] MEDS: ACETAMINOPHEN 1,000 MG/100 ML VIAL IV ONE (10:30)
[2024-02-29] MEDS: FLOSEAL HEMOSTATIC MATRIX 10ML TOP ONE (10:38)
--- NOTE | 2024-02-29 10:45 | Operative Report ---
Post Operative Report Pre & Post Diagnosis Operation Date: 02/29/24 07:45 Pre-Op Diagnosis: Neurogenic claudication due to lumbar spinal stenosis Lumbar spondylolisthesis L3-L4 Post-Op Diagnosis: Same I identified the patient and participated in the time-out.: Yes Procedure Operation Date: 02/29/24 07:45 Actual Procedures #1 lumbar decompression bilateral medial facetectomies and foraminotomies L2-L3, L3-L4, L4-L5 and L5-S1. #2 posterior spinal fusion L3-S1.# 3 placement of posterior segmental instrumentation L3-S1. #4 interbody fusion L3-L4, L4-L5 L5- S1. #5 placement of Spira 10 x 26 mm cage at L3-L4, 12 x 26 mm cage at L4-5 and 13 x 26 mm cage x 2 at L5-S1. #6 placement locally harvested morselized autograft and posterior gutters. #7 placement of infuse collagen sponge combined with Koros in the posterior lateral gutters and Morpheus interbody space. Surgeon Harshil Cummings, DO Maintenance Fitter Prashant Bhakta Estimated Blood Loss 550 Findings See Below The patient is 5 foot 4 weighing over 91 kg with a BMI in excess of 34. Patient's body was did contribute to significant technical difficulty with positioning exposure and the procedure itself. Required deepest retractors longer instruments to perform the procedure. This at least 50% increased operative time. Specimens None Indications This is a 78-year-old female who presents above-mentioned diagnosis of failing since course of nonoperative care she is here for surgical invention. Description of Procedure Patient was met with identified informed 17. Patient was then taken to the operative suite underwent ablation placed in a prone position on the Alexandre table on top of the Moises frame. All bony promises well-padded eyes inspected to ensure no external precipice upon the. This point the lumbar spine was prepped and draped in normal sterile fashion. Sharp dissection with the assistance of Bovie cautery from down to and exposing the lamina and transverse processes of L3-L4-L5 and the sacral ala bilaterally. From a caudal cephalad fashion complete laminectomy L5 L4 L3 and partial laminectomy of L2 was performed. At each level bilateral medial facetectomies and foraminotomies were required to address severe lateral recess and foraminal stenosis. Pedicle screws were then placed in L3-S1 bilaterally with assistance of fluoroscopy and appropriate tona placed. By way of transforaminal approach on the right a discectomy of L5-S1 was performed endplates guided to subcortical bleeding bone and a 13 x 26 mm spiral cage with Morpheus bone graft. then proceeded to the left transforaminal region at L5-S1. Again discectomy performed endplates guided to subcortical bleeding bone and a 13 x 26 mm spiral cage filled with Morpheus bone graft tapped in position. Then proceeded to the L4-L5 right transforaminal region. A complete discectomy was performed endplates guided to subcortical bleeding bone and a 12 x 26 mm spiral cage filled with Morpheus bone graft apposition. Lastly I approached L3-L4 and by way of transforaminal approach on the right complete discectomy was performed endplates guided to subcortical mean bone and a 10 x 26 mm Spira cage with Morpheus bone graft tapped in position. Transverse processes of L3-L4-L5 and the sacral ala burred to subcortical bleeding bone. Infuse collagen sponge, with Koros bone graft local autograft placed in posterior gutters. 15 round PORTER drain inserted. The incision was then closed with 1 Vicryl to fascia 2-0 Vicryl subcutaneously and 4 Monocryl for final skin closure. Steri-Strips sterile dressings placed. Patient awakened taken to PACU stable condition. Please note spinal cord monitoring was utilized at the procedure no changes noted. Lastly Verónica Bhakta was present at the entire procedure involved the patient positioning complex portions of the surgery and fashion closure. I attest to the content of the Intraoperative Record and any orders documented therein. Any exceptions are noted below.
--- NOTE | 2024-02-29 11:06 | Fluoroscopy Report ---
FL lumbar spine 2-3V CLINICAL HISTORY: L3-S1 DECOMPRESSION AND FUSION COMPARISON STUDY: None. FLUOROSCOPY TIME: 30 seconds. FLUOROSCOPY IMAGES: 2 Ka,r: 28.3 mGy FINDINGS: Posterior decompression and fusion from L3 through S1 with pedicle screws and rods. The virgen dware appears intact. Disc spacers are placed. IMPRESSION: Fluoroscopic assistance as above. ACT 112: Negative or not required by law. Electronically signed by: Valentino Ambrocio M.D. 02/29/2024 11:05 AM
[2024-02-29] MEDS ORDERED: ePHEDrine sulfate 50 MG/5 ML SYR ONE (12:49)
[2024-02-29] MEDS ORDERED: ALUMINUM/MAGNESIUM SUSP 30 ML UDC PO PRN (12:53)
[2024-02-29] MEDS ORDERED: SOD PHOSPHATE/SOD BIPHOSPHATE ENEMA 132 ML BTL PR PRN (12:53)
[2024-02-29] MEDS ORDERED: LORazepam 0.5 MG in SYRINGE 0.25 ML IV PRN (12:53)
[2024-02-29] MEDS ORDERED: NALOXONE HCL 0.4 MG/1 ML VIAL/CARP IV PRN (12:53)
[2024-02-29] MEDS ORDERED: HYDROmorphone INJ 0.5 MG/0.5 ML SYR IV PRN (12:53)
[2024-02-29] MEDS ORDERED: MAGNESIUM HYDROXIDE SUSP 30 ML UDC PO PRN (12:53)
[2024-02-29] MEDS ORDERED: DO NOT ADMINISTER PNEUMOCOCCAL VACCINE PRN (12:53)
[2024-02-29] MEDS ORDERED: HYDROmorphone INJ 1 MG/ML SYRINGE IV PRN (12:53)
[2024-02-29] MEDS ORDERED: traMADol HCL 50 MG TABLET PO PRN (12:53)
[2024-02-29] MEDS ORDERED: PROMETHAZINE HCL 12.5 MG in SODIUM CHLORIDE 0.9% 50 ML IV PRN (12:53)
[2024-02-29] MEDS ORDERED: METOCLOPRAMIDE HCL INJ 5 MG/ML 2 ML VIAL IV PRN (12:53)
[2024-02-29] MEDS ORDERED: oxyCODONE HCL IR 5 MG TAB (IMMEDIATE RELEASE) PO PRN (12:53)
[2024-02-29] MEDS ORDERED: ACETAMINOPHEN 1,000 MG/100 ML VIAL IV PRN (12:53)
[2024-02-29] MEDS ORDERED: hydrOXYzine HCl 25 MG TAB PO PRN (12:53)
[2024-02-29] MEDS ORDERED: bisacodyL 10 MG SUPP PR PRN (12:53)
[2024-02-29] MEDS ORDERED: ONDANSETRON 4 MG OD TAB PO PRN (12:53)
[2024-02-29] MEDS ORDERED: PHARMACY GLYCEMIC MGMT CONSULT PRN (12:53)
[2024-02-29] MEDS ORDERED: diphenhydrAMINE Capsule 25 MG CAP PO PRN (12:53)
[2024-02-29] MEDS ORDERED: ALPRAZolam 0.25 MG TABLET PO PRN (12:53)
[2024-02-29] MEDS ORDERED: DO NOT ADMINISTER FLU VACCINE PRN (12:53)
[2024-02-29] MEDS ORDERED: FAMOTIDINE 20 MG TAB PO PRN (12:53)
[2024-02-29] MEDS: SODIUM CHLORIDE 0.9% 1,000 ML IV SCH (13:06)
[2024-02-29] MEDS: INSULIN ASPART PER UNIT CHARGE SC SCH (13:28)
[2024-02-29] MEDS: LANTUS PER UNIT CHARGE SC ONE (13:28)
[2024-02-29] MEDS ORDERED: GLUCAGON FOR INJ 1 MG VIAL IM PRN (13:30)
[2024-02-29] MEDS ORDERED: DEXTROSE 50% 50 ML SYRINGE IV PRN (13:30)
[2024-02-29] MEDS ORDERED: GLUCOSE 10 TAB/TUBE PO PRN (13:30)
[2024-02-29] MEDS ORDERED: CARBOHYDRATES FOR HYPOGLYCEMIA PO PRN (13:30)
[2024-02-29] MEDS ORDERED: GLUCOSE 40% GEL 15 GM TUBE PO PRN (13:30)
--- NOTE | 2024-02-29 13:59 | Anesthesiology Progress Note ---
Date of Service February 29, 2024 Anesthesia Post Procedure Vital Signs Vital Signs: Temp Pulse Pulse Resp BP Pulse Ox O2 Del Method 02/29/24 13:32 36.3 C L 69 16 128/81 98 Room Air 02/29/24 13:02 36.3 C L 61 16 111/67 97 Nasal Cannula 02/29/24 12:22 36.7 C 62 16 135/77 97 Room Air 02/29/24 12:00 57 L 19 139/72 95 Room Air 02/29/24 11:50 36 C L 56 L 18 132/59 L 96 Nasal Cannula 02/29/24 11:40 58 L 19 155/89 H 100 Nasal Cannula 02/29/24 11:30 59 L 21 187/77 H 98 Oxymask 02/29/24 11:20 59 L 20 167/72 H 99 Oxymask 02/29/24 11:10 36 C L 61 18 169/67 H 96 Oxymask 02/29/24 06:55 36.5 C 48 L 18 195/91 H 94 Room Air O2 Flow Rate 02/29/24 13:32 02/29/24 13:02 2 02/29/24 12:22 2 02/29/24 12:00 2 02/29/24 11:50 2 02/29/24 11:40 2 02/29/24 11:30 5 02/29/24 11:20 5 02/29/24 11:10 5 02/29/24 06:55 Pain Intensity Back: Pain Intensity: 5 Transfer of Care Handoff Completed per policy Notes Mental Status: alert / awake / arousable and participated in evaluation Patient Amnestic to Procedure: Yes Nausea / Vomiting: adequately controlled Pain: adequately controlled Airway Patency, RR, SpO2: stable & adequate BP & HR: stable & adequate Hydration State: stable & adequate Anesthetic Complications: no major complications apparent
--- NOTE | 2024-02-29 14:00 | Consultation ---
Date of Consultation February 29, 2024 Assessment & Plan (1) S/P spinal surgery: (2) Neurogenic claudication due to lumbar spinal stenosis: Post op day# 0 S/P L3-S1 decompression and fusion by Dr Zoila MCINTYRE#[id number] Pain management per ortho Wound management per ortho PT/OT as appropriate DVT prophylaxis per ortho Incentive spirometry Monitor H&H for acute blood loss anemia, pre-op Hgb: 12.3 (3) Diabetes mellitus, type 2: Unknown last A1c Hold home oral glycemic agents Glycemic pharmacy on board and managing with basal bolus insulin. Appreciate management A1c in AM (4) Hypertension: BP currently Stable Continue home irbesartan, verapamil, metoprolol succinate Hold HCTZ and reassess tomorrow (5) Hyperlipidemia: Chronic Continue home simvastatin, ezetimibe (6) Anxiety: Continue home medications (7) Hx of breast cancer: S/P partial mastectomy DVT Prophylaxis SCDs Disposition per primary team Follows with Dr Tucker for routine care Pt was seen and care coordinated with Dr Garcia. See addendum Thank you for this consultation. We will follow the patient with you during their hospital stay. You can reach a member of the [facility] Medicine[facility] Team 16/04 via [facility] Supervising Physician Co-Signing Physician Notes I have seen and discussed the case with the collaborating advanced practitioner. I agree with the above H&P. I have reviewed and confirmed the patients medical history, the findings on physical examination, and the patients diagnosis and treatment plan with Therese LORD and agree with the information documented. In short, Ms. Tucker is a 78 yo pleasant woman now s/p lumbar decompression and fusion POD 0 02/28 for whom medicine is consulted for comanagement. patient is stable without acute concerns post-op. Resting comfortably in bed. RRR, lungs CTAB. #Neurogenic claudication s/p decompression/fusion CBC in am for post-op anemia pain, dvt ppx per primary wean o2 as able #HTN multiple agents, resume HCTZ as pressures allow and upon repeat BMP rest of plan as above I spent a total of 20 minutes coordinating, documenting, and providing care for this patient excluding time spent in the performance of separately billed services. All of the aforementioned completed outside of collaborating with the assigned advanced practitioner for a full treatment plan. I have reviewed the advanced practitioner's documentation, and I agree with, and take responsibility for the plan of care History of Present Illness Requesting Physician: Dr Cummings Reason for Consultation: Post op medical management Attending Physician: Harshil Cummings, DO History of Present Illness Patient is 78 year old female with PMH DM II, HTN, HLD, history breast CA, CKD III, anxiety, GERD seen in medical consultation s/p L2-S1 decompression and L3- S1 fusion today by Dr Cummings. Post op patient reports is doing well and reports pain is moderately controlled. Reports that she tolerated clear liquid diet for lunch. Denies any nausea or vomiting. Currently has Frey catheter in place. Last BM this morning. Throat felt a little dry and scratchy after surgery but is feeling better after drinking some fluids, Denies fever/chills, diaphoresis, [place], dizziness, CP, SOB, cough, sore throat, choking, abdominal pain, paresthesias, extremity edema, rashes, urinary symptoms. Allergies Allergy/AdvReac Type Severity Reaction Status Date / Time No Known Drug Allergies Allergy Unknown . Verified 02/29/24 06:55 Home Medications Medication Instructions Recorded Confirmed Type acetaminophen 500 mg tablet 1,000 mg PO BID PRN Pain 02/08/24 02/29/24 History (Tylenol Extra Strength) alprazolam 0.25 mg tablet (Xanax) 0.25 mg PO TID PRN Anxiety 02/08/24 02/29/24 History aspirin 81 mg capsule 81 mg PO [facility] 02/08/24 02/29/24 History calcium carbonate 600 mg-vitamin 1 tab PO [facility] 02/08/24 02/29/24 History D3 20 mcg (800 unit) tablet (Caltrate with Vitamin D3) empagliflozin 25 mg tablet 25 mg PO HS 02/08/24 02/29/24 History (Jardiance) ezetimibe 10 mg-simvastatin 20 mg 1 tab PO HS 02/08/24 02/29/24 History tablet (Vytorin) metoprolol succinate 100 mg 100 mg PO M 02/08/24 02/29/24 History tablet,extended release 24 hr omeprazole 20 mg capsule,delayed 20 mg PO BID 02/08/24 02/29/24 History release sertraline 100 mg tablet (Zoloft) 100 mg PO HS 02/08/24 02/29/24 History verapamil 180 mg tablet,extended 180 mg PO HS 02/08/24 02/29/24 History release irbesartan 300 1 tab PO DAILY 02/29/24 02/29/24 History mg-hydrochlorothiazide 12.5 mg tablet oxycodone 5 mg tablet 5 mg PO Q6H PRN pain #30 tabs 02/29/24 Rx tramadol 50 mg tablet 50 mg PO Q6H PRN pain, moderate 02/29/24 Rx #30 tabs Patient History Medical History [place] (hard of hearing) Osteoarthritis Chronic back pain History of kidney stones no surgical intervention. passed on own. Hx of gastric ulcer GERD (gastroesophageal reflux disease) Diabetes mellitus, type 2 NIDDM Hx of breast cancer (2015) left - treated with radiation and lumpectomy Anxiety Hyperlipidemia Hypertension Surgical History History of colonoscopy History of ankle surgery left S/P epidural steroid injection History of esophagogastroduodenoscopy (EGD) History of cataract surgery bilateral History of tonsillectomy Family History Other No family history of adverse response to anesthesia Social History Smoking Status: Never smoker Second Hand Exposure: No; Do You Dip or Chew Tobacco: No; Tobacco Cessation Education Requested by Patient: No Hx Alcohol Use: No Hx Substance Use: No Preferred Language: Belarusian Communication Ability: Effective [employer] Required: No Beliefs That Will Affect Care: None Current Living Situation: Spouse Other Information That Helps Us Care for You: No Feels Safe at Home: Yes Safety Concerns: Feels Safe At This Time Assistive Devices: Walker Review of Systems Review of Systems: All systems reviewed & are unremarkable except as noted in HPI & below Physical Exam Physical Exam: General: no distress, WDWN Head: normocephalic, atraumatic Eyes: conjunctiva non-injected, anicteric ENT: normal inspection external ears, nose, mucous membranes moist Neck: supple, trachea midline Lungs: clear, no respiratory distress, no wheezing/rhonchi/rales CV: RRR, no murmur, no pretibial edema Abd: normal BS, soft, non-tender Back: surgical dressing in place, PORTER drain in place with serosanguineous drainage Ext: no cyanosis, no calf tenderness; bilateral pedal pushes and pulls intact, distal pulses intact, sensation to light touch intact Neuro: A&O x 3, no focal deficits noted, normal affect Skin: warm, dry Results & Data Vital Signs (Past 12 Hours) Vital Signs Temp Pulse Pulse Resp BP Pulse Ox O2 Del Method 02/29/24 13:32 36.3 C L 69 16 128/81 98 Room Air 02/29/24 13:02 36.3 C L 61 16 111/67 97 Nasal Cannula 02/29/24 12:22 36.7 C 62 16 135/77 97 Room Air 02/29/24 12:00 57 L 19 139/72 95 Room Air 02/29/24 11:50 36 C L 56 L 18 132/59 L 96 Nasal Cannula 02/29/24 11:40 58 L 19 155/89 H 100 Nasal Cannula 02/29/24 11:30 59 L 21 187/77 H 98 Oxymask 02/29/24 11:20 59 L 20 167/72 H 99 Oxymask 02/29/24 11:10 36 C L 61 18 169/67 H 96 Oxymask 02/29/24 06:55 36.5 C 48 L 18 195/91 H 94 Room Air O2 Flow Rate 02/29/24 13:32 02/29/24 13:02 2 02/29/24 12:22 2 02/29/24 12:00 2 02/29/24 11:50 2 02/29/24 11:40 2 02/29/24 11:30 5 02/29/24 11:20 5 02/29/24 11:10 5 02/29/24 06:55
[2024-02-29] MEDS: EZETIMIBE 10 MG TAB PO SCH (20:43)
[2024-02-29] MEDS: VERAPAMIL HCL 180 MG TABCR PO SCH (20:43)
[2024-02-29] MEDS: DOCUSATE SODIUM/SENNA 50/8.6MG TAB PO SCH (20:44)
[2024-02-29] MEDS: SIMVASTATIN 20 MG TAB PO SCH (20:44)
[2024-02-29] MEDS: PANTOprazole 40 MG TAB PO SCH (20:44)
[2024-02-29] MEDS: SERTRALINE HCL 100 MG TABLET PO SCH (20:44)
[2024-02-29] MEDS ORDERED: EMPAGLIFLOZIN 25 MG TAB PO SCH (21:00)
[2024-03-01] MEDS: INSULIN ASPART PER UNIT CHARGE SC SCH (00:47)
[2024-03-01] MEDS: POLYETHYLENE (MIRALAX) 17 GM PACK PO SCH (05:48)
[2024-03-01 06:04] LABS: Basophils # (auto) 0.01 K/uL (0.00-0.20); Basophils % (auto) 0.1 %; Hematocrit (blood only) 27.9 % (37.0-47.0); Immature Granulocytes # (auto) 0.06 K/uL (0.01-0.20); Immature Granulocytes % (auto) 0.5 %; Mean Corpuscular Hemoglobin 25.8 pg (25.0-34.0); Mean Corpuscular Hgb Conc 32.3 g/dL (32.0-36.0); Mean Corpuscular Volume 79.9 fL (80.0-100.0); Mean Platelet Volume 9.4 fL (9.4-12.4); Monocytes # (auto) 0.61 K/uL (0.11-0.59); Monocytes % (auto) 5.5 %; Neutrophils # (auto) 9.24 K/uL (1.40-6.50); Neutrophils % (auto) 83.9 %; Platelet Count 260 K/uL (130-400); RDW Coefficient of Variation 15.3 % (11.5-14.5); RDW Standard Deviation 44.5 fL (36.4-46.3); Red Blood Count 3.49 M/uL (4.20-5.40); White Blood Count 11.02 K/ul (4.8-10.8)
[2024-03-01 06:17] LABS: BUN Creatinine Ratio 27.4 (10-20); Calcium 8.2 mg/dl (8.6-10.3); Creatinine Clr Calc Pharmacy 45.7 ml/min; Est GFR (African American) 54.3 ml/min; Est GFR (Non-African American) 46.8 ml/min; Potassium 3.9 mmol/L (3.5-5.1)
[2024-03-01] MEDS: ACETAMINOPHEN 500 MG TAB PO PRN (06:20)
--- NOTE | 2024-03-01 06:58 | Hospitalist Progress Note ---
Date of Service March 01, 2024 Assessment & Plan (1) S/P spinal surgery: (2) Neurogenic claudication due to lumbar spinal stenosis: Plan: Post op day# 1 S/P L3-S1 decompression and fusion by Dr Cummings Pain management per ortho Wound management per ortho PT/OT as appropriate DVT prophylaxis per ortho Incentive spirometry Monitor H&H Acute blood loss anemia, post-op and dilutional pre-op Hgb: 12.3 -> 9.0 cont. to closely monitor H&H no need for blood transfusion at this time (3) Diabetes mellitus, type 2: Plan: Unknown last A1c Hold home oral glycemic agents Glycemic pharmacy on board and managing with basal bolus insulin. Appreciate management Current A1c 8.5% (4) Hypertension: Plan: BP currently Stable - at home on home irbesartan, verapamil, metoprolol succinate, HCTZ Hold HCTZ, irbesartan and reassess when to resume (5) Hyperlipidemia: Plan: Chronic Continue home simvastatin, ezetimibe (6) Anxiety: Plan: Continue home medications (7) Hx of breast cancer: Plan: S/P partial mastectomy DVT Prophylaxis SCDs Disposition per primary team Pt was seen and care coordinated with Dr Garcia. See addendum Thank you for this consultation. We will follow the patient with you during their hospital stay. You can reach a member of the [facility] Hospitalist Team 16/04 via [employer] Admission and Anticipated Discharge Date Admission Date: February 29, 2024 Subjective Pt seen in follow up of med consult, pt s/p L- spine surgery Currently sitting up in a chair, in no acute distress, overall says she is feeling well, eating breakfast No fever chills chest pain shortness of breath, no abdominal pain. No significant back pain either Already been ambulating Review of Systems Review of Systems: All systems reviewed & are unremarkable except as noted in Subjective Physical Exam Physical Exam: General: WD/WN F in NAD Head: NC/AT Eyes: conjunctiva non-injected, anicteric ENT: normal inspection external ears, nose, mucous membranes moist Neck: supple Lungs: clear, no respiratory distress, no wheezing/rhonchi/rales CV: RRR, no murmur Abd: normal BS, soft, non-tender Back: surgical dressing in place, PORTER drain in place with serosanguineous drainage Ext: bilateral pedal pushes and pulls intact Neuro: A&O x 3, no focal deficits noted, normal affect Skin: warm, dry Results & Data Results & Data Vital Signs (Past 12 Hours) Vital Signs Temp Pulse Resp BP Pulse Ox O2 Del Method O2 Flow Rate 03/01/24 03:32 36.6 C 69 18 122/80 96 Nasal Cannula 2 02/29/24 23:33 36.9 C 76 18 142/79 H 97 Nasal Cannula 2 02/29/24 20:50 Nasal Cannula 2 02/29/24 20:43 75 150/84 H 02/29/24 18:57 36.4 C L 76 16 140/79 94 Nasal Cannula 2 Laboratory Results 03/01/24 03/01/24 03/01/24 Range/Units 05:31 03:36 00:43 WBC 11.02 H (4.8-10.8) K/ul RBC 3.49 L (4.20-5.40) M/uL Hgb 9.0 L (12.0-16.0) g/dl Hct 27.9 L (37.0-47.0) % MCV 79.9 L (80.0-100.0) fL MCH 25.8 (25.0-34.0) pg MCHC 32.3 (32.0-36.0) g/dL RDW Std Deviation 44.5 (36.4-46.3) fL RDW Coeff of Keri 15.3 H (11.5-14.5) % Plt Count 260 (130-400) K/uL MPV 9.4 (9.4-12.4) fL Immature Gran % (Auto) 0.5 % Neut % (Auto) 83.9 % Lymph % (Auto) 10.0 % Collier % (Auto) 5.5 % Eos % (Auto) 0.0 % Baso % (Auto) 0.1 % Neut # (Auto) 9.24 H (1.40-6.50) K/uL Lymph # (Auto) 1.10 L (1.20-3.40) K/uL Collier # (Auto) 0.61 H (0.11-0.59) K/uL Eos # (Auto) 0.00 (0.00-0.50) K/uL Baso # (Auto) 0.01 (0.00-0.20) K/uL Immature Gran # (Auto) 0.06 (0.01-0.20) K/uL Sodium 138 (136-145) mmol/L Potassium 3.9 (3.5-5.1) mmol/L Chloride 104 (98-107) mmol/L Carbon Dioxide 26 (21-32) mmol/L Anion Gap 8 (3-11) BUN 31 H (6-23) mg/dl Creatinine 1.13 (0.6-1.2) mg/dl Est Cr Clr Drug Dosing 45.7 ml/min Est GFR ( Amer) 54.3 ml/min Est GFR (Non-Af Amer) 46.8 ml/min BUN/Creatinine Ratio 27.4 H (10-20) Glucose 223 H (70-99(Fasting)) mg/dl POC Glucose 244 H 206 H (70-99) mg/dl Estimat Average Glucose Pending Hemoglobin A1c Pending Calcium 8.2 L (8.6-10.3) mg/dl Blood Type Antibody Screen 02/29/24 02/29/24 02/29/24 Range/Units 20:08 17:11 13:19 WBC (4.8-10.8) K/ul RBC (4.20-5.40) M/uL Hgb (12.0-16.0) g/dl Hct (37.0-47.0) % MCV (80.0-100.0) fL MCH (25.0-34.0) pg MCHC (32.0-36.0) g/dL RDW Std Deviation (36.4-46.3) fL RDW Coeff of Keri (11.5-14.5) % Plt Count (130-400) K/uL MPV (9.4-12.4) fL Immature Gran % (Auto) % Neut % (Auto) % Lymph % (Auto) % Collier % (Auto) % Eos % (Auto) % Baso % (Auto) % Neut # (Auto) (1.40-6.50) K/uL Lymph # (Auto) (1.20-3.40) K/uL Collier # (Auto) (0.11-0.59) K/uL Eos # (Auto) (0.00-0.50) K/uL Baso # (Auto) (0.00-0.20) K/uL Immature Gran # (Auto) (0.01-0.20) K/uL Sodium (136-145) mmol/L Potassium (3.5-5.1) mmol/L Chloride (98-107) mmol/L Carbon Dioxide (21-32) mmol/L Anion Gap (3-11) BUN (6-23) mg/dl Creatinine (0.6-1.2) mg/dl Est Cr Clr Drug Dosing ml/min Est GFR ( Amer) ml/min Est GFR (Non-Af Amer) ml/min BUN/Creatinine Ratio (10-20) Glucose (70-99(Fasting)) mg/dl POC Glucose 240 H 232 H 246 H (70-99) mg/dl Estimat Average Glucose Hemoglobin A1c Calcium (8.6-10.3) mg/dl Blood Type Antibody Screen 02/29/24 02/29/24 Range/Units 11:12 06:33 WBC (4.8-10.8) K/ul RBC (4.20-5.40) M/uL Hgb (12.0-16.0) g/dl Hct (37.0-47.0) % MCV (80.0-100.0) fL MCH (25.0-34.0) pg MCHC (32.0-36.0) g/dL RDW Std Deviation (36.4-46.3) fL RDW Coeff of Keri (11.5-14.5) % Plt Count (130-400) K/uL MPV (9.4-12.4) fL Immature Gran % (Auto) % Neut % (Auto) % Lymph % (Auto) % Collier % (Auto) % Eos % (Auto) % Baso % (Auto) % Neut # (Auto) (1.40-6.50) K/uL Lymph # (Auto) (1.20-3.40) K/uL Collier # (Auto) (0.11-0.59) K/uL Eos # (Auto) (0.00-0.50) K/uL Baso # (Auto) (0.00-0.20) K/uL Immature Gran # (Auto) (0.01-0.20) K/uL Sodium (136-145) mmol/L Potassium (3.5-5.1) mmol/L Chloride (98-107) mmol/L Carbon Dioxide (21-32) mmol/L Anion Gap (3-11) BUN (6-23) mg/dl Creatinine (0.6-1.2) mg/dl Est Cr Clr Drug Dosing ml/min Est GFR ( Amer) ml/min Est GFR (Non-Af Amer) ml/min BUN/Creatinine Ratio (10-20) Glucose (70-99(Fasting)) mg/dl POC Glucose 243 H (70-99) mg/dl Estimat Average Glucose Hemoglobin A1c Calcium (8.6-10.3) mg/dl Blood Type B Positive Antibody Screen NEGATIVE Medications Administered Current Inpatient Medications Acetaminophen (Acetaminophen 500 Mg Tab) 1,000 mg PO Q8H PRN PRN Reason: MILD Pain Scale 1,2,3 & Pre PT Stop: 03/30/24 12:52 Last Admin: 03/01/24 06:20 Dose: 1,000 mg Al Hydrox/Mg Hydrox/Simethicone (Aluminum/Magnesium Susp 30 Ml Udc) 30 ml PO Q6H PRN PRN Reason: Dyspepsia Stop: 03/30/24 12:52 Aspirin (Aspirin 81 Mg Ectab) [facility] [place]: 03/31/24 08:59 Last Admin: 03/01/24 08:18 Dose: 81 mg Bisacodyl (Bisacodyl 10 Mg Supp) 10 mg MA DAILY PRN PRN Reason: Constipation Stop: 03/30/24 12:52 Calcium/Vitamin D (Calcium 600mg + Vit D 400 Iu Tab) 1 tab PO QAM [facility] Stop: 03/31/24 08:59 Last Admin: 03/01/24 08:19 Dose: 1 tab Dextrose (Dextrose 50% 50 Ml Syringe) 25 - 50 ml IV UD PRN; Protocol PRN Reason: Hypoglycemia Protocol Stop: 03/30/24 13:29 Diphenhydramine HCl (Diphenhydramine Capsule 25 Mg Cap) 25 mg PO Q6H PRN PRN Reason: Allergic Rhinitis/Insomnia Stop: 03/30/24 12:52 Ezetimibe (Ezetimibe 10 Mg Tab) 10 mg PO [facility] Stop: 03/30/24 20:59 Last Admin: 02/29/24 20:43 Dose: 10 mg Famotidine (Famotidine 20 Mg Tab) 20 mg PO Q12H PRN PRN Reason: Dyspepsia Stop: 03/30/24 12:52 Glucagon (Glucagon For Inj 1 Mg Vial) 1 mg IM UD PRN; Protocol PRN Reason: Hypoglycemia Protocol Stop: 03/30/24 13:29 Glucose (Glucose 40% Gel 15 Gm Tube) 15 - 30 gm PO UD PRN; Protocol PRN Reason: Hypoglycemia Protocol Stop: 03/30/24 13:29 Glucose (Glucose 10 Tab/Tube) 4 - 8 tab PO UD PRN; Protocol PRN Reason: Hypoglycemia Protocol Stop: 03/30/24 13:29 Hydrochlorothiazide (Hydrochlorothiazide 25 Mg Tab) 12.5 mg PO QAM [facility] Stop: 03/31/24 08:59 Hydromorphone HCl (Hydromorphone Inj 0.5 Mg/0.5 Ml Syr) 0.5 mg IV Q3H PRN PRN Reason: MODERATE Pain (Scale 4,5,6) & Pre PT Stop: 03/14/24 12:52 Hydromorphone HCl (Hydromorphone Inj 1 Mg/Ml Syringe) 1 mg IV Q3H PRN PRN Reason: SEVERE Pain (Scale 7,8,9,10) Stop: 03/14/24 12:52 Hydroxyzine HCl (Hydroxyzine Hcl 25 Mg Tab) 25 mg PO Q8H PRN PRN Reason: Anxiety Stop: 03/30/24 12:52 Acetaminophen (Ofirmev) 1,000 mg in 100 mls @ 400 mls/hr IV Q8H PRN PRN Reason: Pain Rating 1-3 & Pre PT Stop: 03/01/24 12:53 Promethazine HCl 12.5 mg/ (Sodium Chloride) 50.5 mls @ 202 mls/hr IV Q6H PRN PRN Reason: Nausea &/or Vomiting Stop: 03/30/24 12:52 Lorazepam 0.5 mg/ Syringe 0.5 mls @ 2 mls/min IV Q8H PRN; Protocol PRN Reason: Sedation/Anxiety Stop: 03/30/24 12:52 Dexamethasone 6 mg/ Syringe 1.5 mls @ 1 mls/min IV DAILY [facility] Stop: 03/03/24 09:02 Last Admin: 03/01/24 08:19 Dose: 1 mls/min Influenza Virus Vaccine Quadrival (Do Not Administer Flu Vaccine) 1 each N/A PRN PRN PRN Reason: Notification Stop: 03/30/24 12:52 Insulin Aspart (Insulin Aspart Per Unit Charge) 0 units SC [facility] Stop: 03/30/24 13:29 Last Admin: 03/01/24 08:13 Dose: 19 units Insulin Glargine (Lantus Per Unit Charge) 30 units SC [facility] Stop: 03/31/24 08:59 Last Admin: 03/01/24 08:13 Dose: 30 units Lorazepam (Lorazepam 0.5 Mg Tab) 0.5 mg PO Q8H PRN PRN Reason: Sedation/Anxiety Stop: 03/30/24 12:52 Losartan Potassium (Losartan Potassium 50 Mg Tab) 100 mg PO [facility] Stop: 03/31/24 08:59 Magnesium Hydroxide (Magnesium Hydroxide Susp 30 Ml Udc) 30 ml PO Q24H PRN PRN Reason: Constipation Stop: 03/30/24 12:52 Metoclopramide HCl (Metoclopramide Hcl Inj 5 Mg/Ml 2 Ml Vial) 10 mg IV Q6H PRN PRN Reason: Nausea &/or Vomiting Stop: 03/30/24 12:52 Metoprolol Succinate (Metoprolol Succ 50mg Ext Rel Tab) 100 mg PO [facility] Stop: 03/31/24 08:59 Last Admin: 03/01/24 08:18 Dose: Not Given Miscellaneous (Carbohydrates For Hypoglycemia ) 15 - 30 gm PO UD PRN PRN Reason: Hypoglycemia Treatment Stop: 03/30/24 13:29 Miscellaneous Information (Pharmacy Glycemic Mgmt Consult) 1 each N/A UD PRN PRN Reason: Consult Stop: 03/30/24 12:52 Naloxone HCl (Naloxone Hcl 0.4 Mg/1 Ml Vial/Carp) 0.1 mg IV Q5M PRN PRN Reason: Oversedation/Resp depression Stop: 03/30/24 12:52 Ondansetron HCl (Ondansetron Inj 2 Mg/Ml 2 Ml Vial) 4 mg IV Q6H PRN PRN Reason: Nausea &/or Vomiting Stop: 03/30/24 12:52 Ondansetron HCl (Ondansetron 4 Mg Od Tab) 4 mg PO Q6H PRN PRN Reason: Nausea Stop: 03/30/24 12:52 Oxycodone HCl (Oxycodone Hcl Ir 5 Mg Tab (Immediate Release)) 5 - 10 mg PO Q4H PRN PRN Reason: Pain & Pre PT Stop: 03/14/24 12:52 Pantoprazole Sodium (Pantoprazole 40 Mg Tab) 40 mg PO BID [facility] Stop: 03/30/24 20:59 Last Admin: 03/01/24 08:19 Dose: 40 mg Pneumococcal Polyvalent Vaccine (Do Not Administer Pneumococcal Vaccine) 1 each N/A PRN PRN PRN Reason: Notification Stop: 03/30/24 12:52 Polyethylene Glycol (Polyethylene (Miralax) 17 Gm Pack) 17 gm PO Q6 [facility] Stop: 03/31/24 05:59 Last Admin: 03/01/24 05:48 Dose: 17 gm Senna/Docusate Sodium (Docusate Sodium/Senna 50/8.6mg Tab) 2 tab PO HS [facility] Stop: 03/30/24 20:59 Last Admin: 02/29/24 20:44 Dose: 2 tab Sertraline HCl (Sertraline Hcl 100 Mg Tablet) 100 mg PO HS [facility] Stop: 03/30/24 20:59 Last Admin: 02/29/24 20:44 Dose: 100 mg Simvastatin (Simvastatin 20 Mg Tab) 20 mg PO HS [facility] Stop: 03/30/24 20:59 Last Admin: 02/29/24 20:44 Dose: 20 mg Sodium Biphosphate/Sodium Phosphate (Sod Phosphate/Sod Biphosphate Enema 132 Ml Btl) 132 ml MA ONE PRN PRN Reason: Constipation Stop: 03/30/24 12:52 Tramadol HCl (Tramadol Hcl 50 Mg Tablet) 50 - 100 mg PO Q4H PRN PRN Reason: Moderate-Severe pain & Pre PT Stop: 03/30/24 12:52 Verapamil HCl (Verapamil Hcl 180 Mg Tabcr) 180 mg PO HS [facility] Stop: 03/30/24 20:59 Last Admin: 02/29/24 20:43 Dose: 180 mg
[2024-03-01 07:03] LABS: Estimated Average Glucose 197 mg/dl; Hemoglobin A1C 8.5 % (4.5-5.6)
[2024-03-01] MEDS: LANTUS PER UNIT CHARGE SC SCH ×2 (08:13→16:48)
[2024-03-01] MEDS: METOPROLOL SUCC 50MG EXT REL TAB PO SCH (08:18)
[2024-03-01] MEDS: ASPIRIN 81 MG ECTAB PO SCH (08:18)
[2024-03-01] MEDS: CALCIUM 600MG + VIT D 400 IU TAB PO SCH (08:19)
[2024-03-01] MEDS: dexAMETHasone 6 MG in SYRINGE 0 ML IV SCH (08:19)
[2024-03-01] MEDS ORDERED: hydroCHLOROthiazide 25 MG TAB PO SCH (09:00)
--- NOTE | 2024-03-01 10:03 | Orthopedic Progress Note ---
Date of Service March 01, 2024 Assessment & Plan (1) Neurogenic claudication due to lumbar spinal stenosis: Plan: This time we will initiate physical therapy. Will monitor her PORTER output. Hopefully discharge Sunday. Admission and Anticipated Discharge Date Admission Date: February 29, 2024 Subjective Patient's back pain is controlled leg pain markedly improved. Physical Exam Physical Exam: Patient is in the chair at the bedside. Discussed when to testing. Is comfortable. Results & Data Vital Signs (Past 12 Hours) Vital Signs Temp Pulse Resp BP Pulse Ox O2 Del Method O2 Flow Rate 03/01/24 07:26 36.6 C 55 L 16 135/75 93 Room Air 03/01/24 03:32 36.6 C 69 18 122/80 96 Nasal Cannula 2 02/29/24 23:33 36.9 C 76 18 142/79 H 97 Nasal Cannula 2 Queries Orthopedic Spine Acute Posthemorrhagic Anemia: Yes Obesity: Yes
--- NOTE | 2024-03-01 13:26 | Pharmacy Report ---
Pharmacy Glycemic Short Note 2 - Date of Service March 01, 2024 - Glycemic Short BSG Results (Last 24 hours): 02/29/24 02/29/24 03/01/24 17:11 20:08 00:43 Glucose POC Glucose 232 H 240 H 206 H 03/01/24 03/01/24 03/01/24 03:36 05:31 07:28 Glucose 223 H POC Glucose 244 H 225 H 03/01/24 11:30 Glucose POC Glucose 220 H OUTPATIENT ANTIDIABETIC REGIMEN: * Empagliflozin 25 mg PO qAM * A1c = 8.5% (03/01/24) ASSESSMENT: * Haylie is a 78 yo s/p spinal surgery on 02/29/24. * Persistent hyperglycemia despite receiving 56 units of SC insulin yesterday (20 units Lantus + 36 units Novolog), likely due to baseline degree of glycemic control and administration of dexamethasone IV. Currently ordered dexamethasone 6 mg IV daily. * Will increase both basal and bolus insulin. PLAN FOR INPATIENT GLYCEMIC CONTROL: * Hold outpatient oral diabetes medications * Basal insulin * Lantus 30 units SQ qAM * Additional 0-10 units SQ with dinner ( 10 units if BSG is 200 mg/dL or more) * Bolus insulin * NovoLog per scale ACHS or Q6hrs while NPO * Goal Range: Low 110 mg/dL - High 140 mg/dL * Correction Factor: 15 mg/dL/unit * Nutritional / Prandial insulin per carb ratio of 1 unit per 3 grams CHO consumed
[2024-03-01] MEDS: LORazepam 0.5 MG TAB PO PRN (14:49)
--- NOTE | 2024-03-02 07:46 | Orthopedic Progress Note ---
Date of Service March 02, 2024 Assessment & Plan (1) Neurogenic claudication due to lumbar spinal stenosis: Plan: Procedure is postoperative day 2 status post L3-S1 decompression and fusion. She is doing well. Will continue with ambulation and physical therapy today. Maintain PORTER drain. DVT prophylaxis is in the form of teds and SCDs. Continue with aggressive bowel regimen. Anticipate discharge home tomorrow Admission and Anticipated Discharge Date Admission Date: February 29, 2024 Subjective Haylie is postoperative day 2 status post L3-S1 decompression and fusion. She is doing well. No complaints. PORTER drain output last shift was 85 cc. Yesterday in physical therapy ambulating 285 feet. Review of Systems Review of Systems: All systems reviewed & are unremarkable except as noted in HPI & below Physical Exam Physical Exam: She sitting on the edge of the bed awaiting breakfast in no acute distress alert and oriented x 3 Lumbar dressing is clean dry and intact with functioning PORTER drain Calf soft nontender bilaterally strength intact bilateral lower extremities Results & Data Vital Signs (Past 12 Hours) Vital Signs Temp Pulse Resp BP Pulse Ox O2 Del Method 03/02/24 07:00 36.4 C L 62 16 134/84 92 Room Air 03/01/24 22:12 63 167/93 H 94 Room Air 03/01/24 20:05 36.5 C 64 18 153/76 H 95 Room Air Queries Orthopedic Spine Acute Posthemorrhagic Anemia: Yes Obesity: Yes
[2024-03-02 08:02] LABS: Hematocrit (blood only) 28.5 % (37.0-47.0); Hemoglobin 9.3 g/dl (12.0-16.0); Mean Corpuscular Hemoglobin 26.1 pg (25.0-34.0); Mean Corpuscular Hgb Conc 32.6 g/dL (32.0-36.0); Mean Corpuscular Volume 79.8 fL (80.0-100.0); Mean Platelet Volume 9.5 fL (9.4-12.4); Nucleated RBC # (auto) 0.03 K/uL (0.00-0.12); Nucleated RBC % (auto) 0.2 %; Platelet Count 314 K/uL (130-400); RDW Coefficient of Variation 15.6 % (11.5-14.5); Red Blood Count 3.57 M/uL (4.20-5.40); White Blood Count 14.26 K/ul (4.8-10.8)
[2024-03-02 08:18] LABS: Calcium 8.9 mg/dl (8.6-10.3); Creatinine Clr Calc Pharmacy 50.2 ml/min; Est GFR (African American) 60.7 ml/min; Est GFR (Non-African American) 52.4 ml/min; Magnesium 2.1 mg/dl (1.7-2.4); Phosphorus 3.4 mg/dl (2.5-4.9); Potassium 3.7 mmol/L (3.5-5.1)
[2024-03-02] MEDS: LANTUS PER UNIT CHARGE SC SCH (08:22)
--- NOTE | 2024-03-02 16:19 | Hospitalist Progress Note ---
Date of Service March 02, 2024 Assessment & Plan (1) S/P spinal surgery: (2) Neurogenic claudication due to lumbar spinal stenosis: Plan: Post op day# 2 S/P L3-S1 decompression and fusion by Dr Cummings Pain management per ortho Wound management per ortho PT/OT as appropriate DVT prophylaxis per ortho Incentive spirometry Monitor H&H Acute blood loss anemia, post-op and dilutional pre-op Hgb: 12.3 -> 9.0 -> 9.3 (stable from yesterday) cont. to closely monitor H&H no need for blood transfusion at this time will start iron supplement (3) Diabetes mellitus, type 2: Plan: Hold home oral glycemic agents Glycemic pharmacy on board and managing with basal bolus insulin. Appreciate management Current A1c 8.5% Will need follow up as outpt (4) Hypertension: Plan: BP currently Stable - at home on home irbesartan, verapamil, metoprolol succinate, HCTZ Hold HCTZ, irbesartan and reassess when to resume (5) Hyperlipidemia: Plan: Chronic Continue home simvastatin, ezetimibe (6) Anxiety: Plan: Continue home medications (7) Hx of breast cancer: Plan: S/P partial mastectomy DVT Prophylaxis SCDs Disposition per primary team Pt was seen and care coordinated with Dr Garcia. See addendum Thank you for this consultation. We will follow the patient with you during their hospital stay. You can [facility] via [employer] Admission and Anticipated Discharge Date Admission Date: February 29, 2024 Subjective Pt seen in follow up of med consult, pt s/p L- spine surgery Currently sitting up in a chair, in no acute distress, overall says she is feeling well No fever chills chest pain shortness of breath, no abdominal pain. No significant back pain either Already been ambulating. Had BM, and urinating w/o difficulty. Review of Systems Review of Systems: All systems reviewed & are unremarkable except as noted in Subjective Physical Exam Physical Exam: General: WD/WN F in NAD Head: NC/AT Eyes: conjunctiva non-injected, anicteric ENT: normal inspection external ears, nose, mucous membranes moist Neck: supple Lungs: clear, no respiratory distress, no wheezing/rhonchi/rales CV: RRR, no murmur Abd: normal BS, soft, non-tender Back: surgical dressing in place, PORTER drain in place with serosanguineous drainage Ext: bilateral pedal pushes and pulls intact Neuro: A&O x 3, no focal deficits noted, normal affect Skin: warm, dry Results & Data Results & Data Vital Signs (Past 12 Hours) Vital Signs Temp Pulse Resp BP Pulse Ox O2 Del Method 03/02/24 14:10 36.6 C 63 16 150/78 H 94 Room Air 03/02/24 08:33 68 150/66 H 03/02/24 07:00 36.4 C L 62 16 134/84 92 Room Air Laboratory Results 03/02/24 03/02/24 03/02/24 Range/Units 11:49 07:45 07:33 WBC 14.26 H (4.8-10.8) K/ul RBC 3.57 L (4.20-5.40) M/uL Hgb 9.3 L (12.0-16.0) g/dl Hct 28.5 L (37.0-47.0) % MCV 79.8 L (80.0-100.0) fL MCH 26.1 (25.0-34.0) pg MCHC 32.6 (32.0-36.0) g/dL RDW Std Deviation 45.0 (36.4-46.3) fL RDW Coeff of Keri 15.6 H (11.5-14.5) % Plt Count 314 (130-400) K/uL MPV 9.5 (9.4-12.4) fL Absolute Nucleated RBC 0.03 (0.00-0.12) K/uL Nucleated RBC % (auto) 0.2 % Sodium 140 (136-145) mmol/L Potassium 3.7 (3.5-5.1) mmol/L Chloride 103 (98-107) mmol/L Carbon Dioxide 26 (21-32) mmol/L Anion Gap 11 (3-11) BUN 34 H (6-23) mg/dl Creatinine 1.03 (0.6-1.2) mg/dl Est Cr Clr Drug Dosing 50.2 ml/min Est GFR ( Amer) 60.7 ml/min Est GFR (Non-Af Amer) 52.4 ml/min BUN/Creatinine Ratio 33.0 H (10-20) Glucose 186 H (70-99(Fasting)) mg/dl POC Glucose 245 H 185 H (70-99) mg/dl Calcium 8.9 (8.6-10.3) mg/dl Phosphorus 3.4 (2.5-4.9) mg/dl Magnesium 2.1 (1.7-2.4) mg/dl Crossmatch 03/01/24 03/01/24 02/29/24 Range/Units 20:55 16:32 06:33 WBC (4.8-10.8) K/ul RBC (4.20-5.40) M/uL Hgb (12.0-16.0) g/dl Hct (37.0-47.0) % MCV (80.0-100.0) fL MCH (25.0-34.0) pg MCHC (32.0-36.0) g/dL RDW Std Deviation (36.4-46.3) fL RDW Coeff of Keri (11.5-14.5) % Plt Count (130-400) K/uL MPV (9.4-12.4) fL Absolute Nucleated RBC (0.00-0.12) K/uL Nucleated RBC % (auto) % Sodium (136-145) mmol/L Potassium (3.5-5.1) mmol/L Chloride (98-107) mmol/L Carbon Dioxide (21-32) mmol/L Anion Gap (3-11) BUN (6-23) mg/dl Creatinine (0.6-1.2) mg/dl Est Cr Clr Drug Dosing ml/min Est GFR ( Amer) ml/min Est GFR (Non-Af Amer) ml/min BUN/Creatinine Ratio (10-20) Glucose (70-99(Fasting)) mg/dl POC Glucose 180 H 194 H (70-99) mg/dl Calcium (8.6-10.3) mg/dl Phosphorus (2.5-4.9) mg/dl Magnesium (1.7-2.4) mg/dl Crossmatch See Detail Medications Administered Current Inpatient Medications Acetaminophen (Acetaminophen 500 Mg Tab) 1,000 mg PO Q8H PRN PRN Reason: MILD Pain Scale 1,2,3 & Pre PT Stop: 03/30/24 12:52 Last Admin: 03/01/24 06:20 Dose: 1,000 mg Al Hydrox/Mg Hydrox/Simethicone (Aluminum/Magnesium Susp 30 Ml Udc) 30 ml PO Q6H PRN PRN Reason: Dyspepsia Stop: 03/30/24 12:52 Aspirin (Aspir[facility] 81 Mg [facility]ab) [facility] [place]: 03/31/24 08:59 Last Admin: 03/02/24 08:34 Dose: 81 mg Bisacodyl (Bisacodyl 10 Mg Supp) 10 mg MA DAILY PRN PRN Reason: Constipation Stop: 03/30/24 12:52 Calcium/Vitamin D (Calcium 600mg + Vit D 400 Iu Tab) 1 tab PO [facility] Stop: 03/31/24 08:59 Last Admin: 03/02/24 08:34 Dose: 1 tab Dextrose (Dextrose 50% 50 Ml Syringe) 25 - 50 ml IV UD PRN; Protocol PRN Reason: Hypoglycemia Protocol Stop: 03/30/24 13:29 Diphenhydramine HCl (Diphenhydramine Capsule 25 Mg Cap) 25 mg PO Q6H PRN PRN Reason: Allergic Rhinitis/Insomnia Stop: 03/30/24 12:52 Ezetimibe (Ezetimibe 10 Mg Tab) 10 mg PO [facility] Stop: 03/30/24 20:59 Last Admin: 03/01/24 22:15 Dose: 10 mg Famotidine (Famotidine 20 Mg Tab) 20 mg PO Q12H PRN PRN Reason: Dyspepsia Stop: 03/30/24 12:52 Glucagon (Glucagon For Inj 1 Mg Vial) 1 mg IM UD PRN; Protocol PRN Reason: Hypoglycemia Protocol Stop: 03/30/24 13:29 Glucose (Glucose 40% Gel 15 Gm Tube) 15 - 30 gm PO UD PRN; Protocol PRN Reason: Hypoglycemia Protocol Stop: 03/30/24 13:29 Glucose (Glucose 10 Tab/Tube) 4 - 8 tab PO UD PRN; Protocol PRN Reason: Hypoglycemia Protocol Stop: 03/30/24 13:29 Hydrochlorothiazide (Hydrochlorothiazide 25 Mg Tab) 12.5 [facility] [place]: 03/31/24 08:59 Hydromorphone HCl (Hydromorphone Inj 0.5 Mg/0.5 Ml Syr) 0.5 mg IV Q3H PRN PRN Reason: MODERATE Pain (Scale 4,5,6) & Pre PT Stop: 03/14/24 12:52 Hydromorphone HCl (Hydromorphone Inj 1 Mg/Ml Syringe) 1 mg IV Q3H PRN PRN Reason: SEVERE Pain (Scale 7,8,9,10) Stop: 03/14/24 12:52 Hydroxyzine HCl (Hydroxyzine Hcl 25 Mg Tab) 25 mg PO Q8H PRN PRN Reason: Anxiety Stop: 03/30/24 12:52 Promethazine HCl 12.5 mg/ (Sodium Chloride) 50.5 mls @ 202 mls/hr IV Q6H PRN PRN Reason: Nausea &/or Vomiting Stop: 03/30/24 12:52 Lorazepam 0.5 mg/ Syringe 0.5 mls @ 2 mls/min IV Q8H PRN; Protocol PRN Reason: Sedation/Anxiety Stop: 03/30/24 12:52 Dexamethasone 6 mg/ Syringe 1.5 mls @ 1 mls/min IV DAILY [facility] Stop: 03/03/24 09:02 Last Admin: 03/02/24 08:27 Dose: 1 mls/min Influenza Virus Vaccine Quadrival (Do Not Administer Flu Vaccine) 1 each N/A PRN PRN PRN Reason: Notification Stop: 03/30/24 12:52 Insulin Aspart (Insulin Aspart Per Unit Charge) 0 units SC ACHS [facility] Stop: 03/30/24 13:29 Last Admin: 03/02/24 12:23 Dose: 29 units Insulin Glargine (Lantus Per Unit Charge) 40 units SC QAM [facility] Stop: 04/01/24 08:59 Last Admin: 03/02/24 08:22 Dose: 40 units Lorazepam (Lorazepam 0.5 Mg Tab) 0.5 mg PO Q8H PRN PRN Reason: Sedation/Anxiety Stop: 03/30/24 12:52 Last Admin: 03/02/24 08:38 Dose: 0.5 mg Losartan Potassium (Losartan Potassium 50 Mg Tab) 100 mg PO QAM [facility] Stop: 03/31/24 08:59 Magnesium Hydroxide (Magnesium Hydroxide Susp 30 Ml Udc) 30 ml PO Q24H PRN PRN Reason: Constipation Stop: 03/30/24 12:52 Metoclopramide HCl (Metoclopramide Hcl Inj 5 Mg/Ml 2 Ml Vial) 10 mg IV Q6H PRN PRN Reason: Nausea &/or Vomiting Stop: 03/30/24 12:52 Metoprolol Succinate (Metoprolol Succ 50mg Ext Rel Tab) 100 mg PO QAM [facility] Stop: 03/31/24 08:59 Last Admin: 03/02/24 08:34 Dose: 100 mg Miscellaneous (Carbohydrates For Hypoglycemia ) 15 - 30 gm PO UD PRN PRN Reason: Hypoglycemia Treatment Stop: 03/30/24 13:29 Miscellaneous Information (Pharmacy Glycemic Mgmt Consult) 1 each N/A UD PRN PRN Reason: Consult Stop: 03/30/24 12:52 Naloxone HCl (Naloxone Hcl 0.4 Mg/1 Ml Vial/Carp) 0.1 mg IV Q5M PRN PRN Reason: Oversedation/Resp depression Stop: 03/30/24 12:52 Ondansetron HCl (Ondansetron Inj 2 Mg/Ml 2 Ml Vial) 4 mg IV Q6H PRN PRN Reason: Nausea &/or Vomiting Stop: 03/30/24 12:52 Ondansetron HCl (Ondansetron 4 Mg Od Tab) 4 mg PO Q6H PRN PRN Reason: Nausea Stop: 03/30/24 12:52 Oxycodone HCl (Oxycodone Hcl Ir 5 Mg Tab (Immediate Release)) 5 - 10 mg PO Q4H PRN PRN Reason: Pain & Pre PT Stop: 03/14/24 12:52 Pantoprazole Sodium (Pantoprazole 40 Mg Tab) 40 mg PO BID [facility] Stop: 03/30/24 20:59 Last Admin: 03/02/24 08:33 Dose: 40 mg Pneumococcal Polyvalent Vaccine (Do Not Administer Pneumococcal Vaccine) 1 each N/A PRN PRN PRN Reason: Notification Stop: 03/30/24 12:52 Senna/Docusate Sodium (Docusate Sodium/Senna 50/8.6mg Tab) 2 tab PO [facility] Stop: 03/30/24 20:59 Last Admin: 03/01/24 22:14 Dose: 2 tab Sertraline HCl (Sertraline Hcl 100 Mg Tablet) 100 mg PO [facility] Stop: 03/30/24 20:59 Last Admin: 03/01/24 22:15 Dose: 100 mg Simvastatin (Simvastatin 20 Mg Tab) 20 mg PO [facility] Stop: 03/30/24 20:59 Last Admin: 03/01/24 22:15 Dose: 20 mg Sodium Biphosphate/Sodium Phosphate (Sod Phosphate/Sod Biphosphate Enema 132 Ml Btl) 132 ml MA ONE PRN PRN Reason: Constipation Stop: 03/30/24 12:52 Tramadol HCl (Tramadol Hcl 50 Mg Tablet) 50 - 100 mg PO Q4H PRN PRN Reason: Moderate-Severe pain & Pre PT Stop: 03/30/24 12:52 Verapamil HCl (Verapamil Hcl 180 Mg Tabcr) 180 mg PO [facility] Stop: 03/30/24 20:59 Last Admin: 03/01/24 22:15 Dose: 180 mg
[2024-03-02] MEDS: FERROUS SULFATE 325 MG TAB PO SCH (16:47)
[2024-03-03 05:55] LABS: Hematocrit (blood only) 27.8 % (37.0-47.0); Hemoglobin 8.9 g/dl (12.0-16.0); Mean Corpuscular Hemoglobin 25.6 pg (25.0-34.0); Mean Corpuscular Volume 80.1 fL (80.0-100.0); Mean Platelet Volume 9.7 fL (9.4-12.4); Nucleated RBC # (auto) 0.03 K/uL (0.00-0.12); Nucleated RBC % (auto) 0.3 %; Platelet Count 304 K/uL (130-400); RDW Coefficient of Variation 15.8 % (11.5-14.5); RDW Standard Deviation 45.7 fL (36.4-46.3); Red Blood Count 3.47 M/uL (4.20-5.40); White Blood Count 9.72 K/ul (4.8-10.8)
[2024-03-03 06:09] LABS: BUN Creatinine Ratio 34.5 (10-20); Calcium 8.5 mg/dl (8.6-10.3); Creatinine Clr Calc Pharmacy 45.7 ml/min; Est GFR (African American) 54.3 ml/min; Est GFR (Non-African American) 46.8 ml/min; Magnesium 2.2 mg/dl (1.7-2.4); Phosphorus 3.5 mg/dl (2.5-4.9); Potassium 3.8 mmol/L (3.5-5.1)
--- NOTE | 2024-03-03 08:10 | Hospitalist Progress Note ---
Date of Service March 03, 2024 Assessment & Plan (1) S/P spinal surgery: (2) Neurogenic claudication due to lumbar spinal stenosis: Plan: Post op day# 3 S/P L3-S1 decompression and fusion by Dr Cummings Pain management per ortho Wound management per ortho PT/OT as appropriate DVT prophylaxis per ortho Incentive spirometry Monitor H&H Acute blood loss anemia, post-op and dilutional pre-op Hgb: 12.3 -. ~9 (Hgb been stable since post-op) cont. to closely monitor H&H no need for blood transfusion at this time started iron supplement (3) Diabetes mellitus, type 2: Plan: Hold home oral glycemic agents Glycemic pharmacy on board and managing with basal bolus insulin. Appreciate management Current A1c 8.5% Will need follow up as outpt (4) Hypertension: Plan: BP currently Stable - at home on home irbesartan, verapamil, metoprolol succinate, HCTZ Held HCTZ, irbesartan - can resume on DC (5) Hyperlipidemia: Plan: Chronic Continue home simvastatin, ezetimibe (6) Anxiety: Plan: Continue home medications (7) Hx of breast cancer: Plan: S/P partial mastectomy DVT Prophylaxis SCDs Disposition per primary team Thank you for this consultation. We will follow the patient with you during their hospital stay. You can reach a member of [facility] via [email or web address] Admission and Anticipated Discharge Date Admission Date: February 29, 2024 Subjective Pt seen in follow up of med consult, pt s/p L- spine surgery Currently sitting up in a chair, in no acute distress, overall says she is feeling well No fever chills chest pain shortness of breath, no abdominal pain. No significant back pain either Already been ambulating. Had BM, and urinating w/o difficulty. Review of Systems Review of Systems: All systems reviewed & are unremarkable except as noted in Subjective Physical Exam Physical Exam: General: WD/WN F in NAD Head: NC/AT Eyes: conjunctiva non-injected, anicteric ENT: normal inspection external ears, nose, mucous membranes moist Neck: supple Lungs: clear, no respiratory distress, no wheezing/rhonchi/rales CV: RRR, no murmur Abd: normal BS, soft, non-tender Back: surgical dressing in place, PORTER drain in place with serosanguineous drainage Ext: bilateral pedal pushes and pulls intact, moves extremities Neuro: A&O x 3, no focal deficits noted, normal affect Skin: warm, dry Results & Data Results & Data Vital Signs (Past 12 Hours) Vital Signs Temp Pulse Pulse Resp BP Pulse Ox O2 Del Method 03/03/24 07:15 36.6 C 57 L 16 146/83 H 92 Room Air 03/02/24 20:14 36.7 C 69 16 170/80 H 93 Room Air Laboratory Results 03/03/24 03/03/24 03/02/24 Range/Units 07:34 05:20 20:38 WBC 9.72 (4.8-10.8) K/ul RBC 3.47 L (4.20-5.40) M/uL Hgb 8.9 L (12.0-16.0) g/dl Hct 27.8 L (37.0-47.0) % MCV 80.1 (80.0-100.0) fL MCH 25.6 (25.0-34.0) pg MCHC 32.0 (32.0-36.0) g/dL RDW Std Deviation 45.7 (36.4-46.3) fL RDW Coeff of Keri 15.8 H (11.5-14.5) % Plt Count 304 (130-400) K/uL MPV 9.7 (9.4-12.4) fL Absolute Nucleated RBC 0.03 (0.00-0.12) K/uL Nucleated RBC % (auto) 0.3 % Sodium 139 (136-145) mmol/L Potassium 3.8 (3.5-5.1) mmol/L Chloride 104 (98-107) mmol/L Carbon Dioxide 27 (21-32) mmol/L Anion Gap 8 (3-11) BUN 39 H (6-23) mg/dl Creatinine 1.13 (0.6-1.2) mg/dl Est Cr Clr Drug Dosing 45.7 ml/min Est GFR ( Amer) 54.3 ml/min Est GFR (Non-Af Amer) 46.8 ml/min BUN/Creatinine Ratio 34.5 H (10-20) Glucose 171 H (70-99(Fasting)) mg/dl POC Glucose 155 H 163 H (70-99) mg/dl Calcium 8.5 L (8.6-10.3) mg/dl Phosphorus 3.5 (2.5-4.9) mg/dl Magnesium 2.2 (1.7-2.4) mg/dl Crossmatch 03/02/24 03/02/24 03/02/24 Range/Units 16:35 11:49 07:33 WBC (4.8-10.8) K/ul RBC (4.20-5.40) M/uL Hgb (12.0-16.0) g/dl Hct (37.0-47.0) % MCV (80.0-100.0) fL MCH (25.0-34.0) pg MCHC (32.0-36.0) g/dL RDW Std Deviation (36.4-46.3) fL RDW Coeff of Keri (11.5-14.5) % Plt Count (130-400) K/uL MPV (9.4-12.4) fL Absolute Nucleated RBC (0.00-0.12) K/uL Nucleated RBC % (auto) % Sodium 140 (136-145) mmol/L Potassium 3.7 (3.5-5.1) mmol/L Chloride 103 (98-107) mmol/L Carbon Dioxide 26 (21-32) mmol/L Anion Gap 11 (3-11) BUN 34 H (6-23) mg/dl Creatinine 1.03 (0.6-1.2) mg/dl Est Cr Clr Drug Dosing 50.2 ml/min Est GFR ( Amer) 60.7 ml/min Est GFR (Non-Af Amer) 52.4 ml/min BUN/Creatinine Ratio 33.0 H (10-20) Glucose 186 H (70-99(Fasting)) mg/dl POC Glucose 168 H 245 H (70-99) mg/dl Calcium 8.9 (8.6-10.3) mg/dl Phosphorus 3.4 (2.5-4.9) mg/dl Magnesium 2.1 (1.7-2.4) mg/dl Crossmatch 02/29/24 Range/Units 06:33 WBC (4.8-10.8) K/ul RBC (4.20-5.40) M/uL Hgb (12.0-16.0) g/dl Hct (37.0-47.0) % MCV (80.0-100.0) fL MCH (25.0-34.0) pg MCHC (32.0-36.0) g/dL RDW Std Deviation (36.4-46.3) fL RDW Coeff of Keri (11.5-14.5) % Plt Count (130-400) K/uL MPV (9.4-12.4) fL Absolute Nucleated RBC (0.00-0.12) K/uL Nucleated RBC % (auto) % Sodium (136-145) mmol/L Potassium (3.5-5.1) mmol/L Chloride (98-107) mmol/L Carbon Dioxide (21-32) mmol/L Anion Gap (3-11) BUN (6-23) mg/dl Creatinine (0.6-1.2) mg/dl Est Cr Clr Drug Dosing ml/min Est GFR ( Amer) ml/min Est GFR (Non-Af Amer) ml/min BUN/Creatinine Ratio (10-20) Glucose (70-99(Fasting)) mg/dl POC Glucose (70-99) mg/dl Calcium (8.6-10.3) mg/dl Phosphorus (2.5-4.9) mg/dl Magnesium (1.7-2.4) mg/dl Crossmatch See Detail Medications Administered Current Inpatient Medications Acetaminophen (Acetaminophen 500 Mg Tab) 1,000 mg PO Q8H PRN PRN Reason: MILD Pain Scale 1,2,3 & Pre PT Stop: 03/30/24 12:52 Last Admin: 03/01/24 06:20 Dose: 1,000 mg Al Hydrox/Mg Hydrox/Simethicone (Aluminum/Magnesium Susp 30 Ml Udc) 30 ml PO Q6H PRN PRN Reason: Dyspepsia Stop: 03/30/24 12:52 Aspirin (Aspirin 81 Mg Ectab) 81 mg PO [facility] Stop: 03/31/24 08:59 Last Admin: 03/02/24 08:34 Dose: 81 mg Bisacodyl (Bisacodyl 10 Mg Supp) 10 mg LA DAILY PRN PRN Reason: Constipation Stop: 03/30/24 12:52 Calcium/Vitamin D (Calcium 600mg + Vit D 400 Iu Tab) 1 tab PO [facility] Stop: 03/31/24 08:59 Last Admin: 03/02/24 08:34 Dose: 1 tab Dextrose (Dextrose 50% 50 Ml Syringe) 25 - 50 ml IV UD PRN; Protocol PRN Reason: Hypoglycemia Protocol Stop: 03/30/24 13:29 Diphenhydramine HCl (Diphenhydramine Capsule 25 Mg Cap) 25 mg PO Q6H PRN PRN Reason: Allergic Rhinitis/Insomnia Stop: 03/30/24 12:52 Ezetimibe (Ezetimibe 10 Mg Tab) 10 mg PO [facility] Stop: 03/30/24 20:59 Last Admin: 03/02/24 21:03 Dose: 10 mg Famotidine (Famotidine 20 Mg Tab) 20 mg PO Q12H PRN PRN Reason: Dyspepsia Stop: 03/30/24 12:52 Ferrous Sulfate (Ferrous Sulfate 325 Mg Tab) 325 mg PO BIDM [facility] Stop: 04/01/24 16:59 Last Admin: 03/02/24 16:47 Dose: 325 mg Glucagon (Glucagon For Inj 1 Mg Vial) 1 mg IM UD PRN; Protocol PRN Reason: Hypoglycemia Protocol Stop: 03/30/24 13:29 Glucose (Glucose 40% Gel 15 Gm Tube) 15 - 30 gm PO UD PRN; Protocol PRN Reason: Hypoglycemia Protocol Stop: 03/30/24 13:29 Glucose (Glucose 10 Tab/Tube) 4 - 8 tab PO UD PRN; Protocol PRN Reason: Hypoglycemia Protocol Stop: 03/30/24 13:29 Hydrochlorothiazide (Hydrochlorothiazide 25 Mg Tab) 12.5 mg PO QAM [facility] Stop: 03/31/24 08:59 Hydromorphone HCl (Hydromorphone Inj 0.5 Mg/0.5 Ml Syr) 0.5 mg IV Q3H PRN PRN Reason: MODERATE Pain (Scale 4,5,6) & Pre PT Stop: 03/14/24 12:52 Hydromorphone HCl (Hydromorphone Inj 1 Mg/Ml Syringe) 1 mg IV Q3H PRN PRN Reason: SEVERE Pain (Scale 7,8,9,10) Stop: 03/14/24 12:52 Hydroxyzine HCl (Hydroxyzine Hcl 25 Mg Tab) 25 mg PO Q8H PRN PRN Reason: Anxiety Stop: 03/30/24 12:52 Promethazine HCl 12.5 mg/ (Sodium Chloride) 50.5 mls @ 202 mls/hr IV Q6H PRN PRN Reason: Nausea &/or Vomiting Stop: 03/30/24 12:52 Lorazepam 0.5 mg/ Syringe 0.5 mls @ 2 mls/min IV Q8H PRN; Protocol PRN Reason: Sedation/Anxiety Stop: 03/30/24 12:52 Dexamethasone 6 mg/ Syringe 1.5 mls @ 1 mls/min IV DAILY [facility] Stop: 03/03/24 09:02 Last Admin: 03/02/24 08:27 Dose: 1 mls/min Influenza Virus Vaccine Quadrival (Do Not Administer Flu Vaccine) 1 each N/A PRN PRN PRN Reason: Notification Stop: 03/30/24 12:52 Insulin Aspart (Insulin Aspart Per Unit Charge) 0 units SC [facility] Stop: 03/30/24 13:29 Last Admin: 03/02/24 21:13 Dose: 2 units Insulin Glargine (Lantus Per Unit Charge) 40 units SC [facility] Stop: 04/01/24 08:59 Last Admin: 03/02/24 08:22 Dose: 40 units Lorazepam (Lorazepam 0.5 Mg Tab) 0.5 mg PO Q8H PRN PRN Reason: Sedation/Anxiety Stop: 03/30/24 12:52 Last Admin: 03/02/24 08:38 Dose: 0.5 mg Losartan Potassium (Losartan Potassium 50 Mg Tab) 100 mg PO [facility] Stop: 03/31/24 08:59 Magnesium Hydroxide (Magnesium Hydroxide Susp 30 Ml Udc) 30 ml PO Q24H PRN PRN Reason: Constipation Stop: 03/30/24 12:52 Metoclopramide HCl (Metoclopramide Hcl Inj 5 Mg/Ml 2 Ml Vial) 10 mg IV Q6H PRN PRN Reason: Nausea &/or Vomiting Stop: 03/30/24 12:52 Metoprolol Succinate (Metoprolol Succ 50mg Ext Rel Tab) 100 mg PO [facility] Stop: 03/31/24 08:59 Last Admin: 03/02/24 08:34 Dose: 100 mg Miscellaneous (Carbohydrates For Hypoglycemia ) 15 - 30 gm PO UD PRN PRN Reason: Hypoglycemia Treatment Stop: 03/30/24 13:29 Miscellaneous Information (Pharmacy Glycemic Mgmt Consult) 1 each N/A UD PRN PRN Reason: Consult Stop: 03/30/24 12:52 Naloxone HCl (Naloxone Hcl 0.4 Mg/1 Ml Vial/Carp) 0.1 mg IV Q5M PRN PRN Reason: Oversedation/Resp depression Stop: 03/30/24 12:52 Ondansetron HCl (Ondansetron Inj 2 Mg/Ml 2 Ml Vial) 4 mg IV Q6H PRN PRN Reason: Nausea &/or Vomiting Stop: 03/30/24 12:52 Ondansetron HCl (Ondansetron 4 Mg Od Tab) 4 mg PO Q6H PRN PRN Reason: Nausea Stop: 03/30/24 12:52 Oxycodone HCl (Oxycodone Hcl Ir 5 Mg Tab (Immediate Release)) 5 - 10 mg PO Q4H PRN PRN Reason: Pain & Pre PT Stop: 03/14/24 12:52 Pantoprazole Sodium (Pantoprazole 40 Mg Tab) 40 mg PO BID [facility] Stop: 03/30/24 20:59 Last Admin: 03/02/24 21:03 Dose: 40 mg Pneumococcal Polyvalent Vaccine (Do Not Administer Pneumococcal Vaccine) 1 each N/A PRN PRN PRN Reason: Notification Stop: 03/30/24 12:52 Senna/Docusate Sodium (Docusate Sodium/Senna 50/8.6mg Tab) 2 tab PO HS [facility] Stop: 03/30/24 20:59 Last Admin: 03/02/24 21:00 Dose: Not Given Sertraline HCl (Sertraline Hcl 100 Mg Tablet) 100 mg PO [facility] Stop: 03/30/24 20:59 Last Admin: 03/02/24 21:03 Dose: 100 mg Simvastatin (Simvastatin 20 Mg Tab) 20 mg PO [facility] Stop: 03/30/24 20:59 Last Admin: 03/02/24 21:03 Dose: 20 mg Sodium Biphosphate/Sodium Phosphate (Sod Phosphate/Sod Biphosphate Enema 132 Ml Btl) 132 ml LA ONE PRN PRN Reason: Constipation Stop: 03/30/24 12:52 Tramadol HCl (Tramadol Hcl 50 Mg Tablet) 50 - 100 mg PO Q4H PRN PRN Reason: Moderate-Severe pain & Pre PT Stop: 03/30/24 12:52 Verapamil HCl (Verapamil Hcl 180 Mg Tabcr) 180 mg PO HS [facility] Stop: 03/30/24 20:59 Last Admin: 03/02/24 21:03 Dose: 180 mg
--- NOTE | 2024-03-03 09:40 | Discharge Summary ---
Date of Service March 03, 2024 Admission HPI Per Admitting Provider This is a 78-year-old female presents chronic persistent back and bilateral leg pain and failing since course of nonoperative care she is here for surgical invention. Principal Diagnosis Lumbar spinal stenosis with neurogenic claudication Discharge Data Allergies Allergy/AdvReac Type Severity Reaction Status Date / Time No Known Drug Allergies Allergy Unknown . Verified 02/29/24 06:55 Consultations 02/29/24 12:53 Consult Hospitalist Routine Procedures Performed Operation Date: 02/29/24 07:45 Actual Procedures p L3-S1 Decompression and Fusion, Spinal Cord Monitoring(Not Applicable) - Harshil Cummings DO Ordered Studies 02/29/24 07:45 [place] lumbar spine 2-3V Routine Hospital Course (1) Neurogenic claudication due to lumbar spinal stenosis: Patient underwent lumbar decompression fusion tolerated as well as taken to orthopedic for postoperative. Postoperatively she progressed appropriately leg pain markedly improved. Excellent strength testing. PORTER drain decreasing. Pain well-controlled. Subsequent discharge home. Discharge orders instructions from the chart for further review. Total Time Total Time Spent Total Time Spent (In Minutes): 20 minutes Discharge Plan Discharge Items Patient Disposition: Home - Self-Care Reason For Visit: Spinal Stenosis, Lumbar Region with Neurogenic Cla Discharge Diagnosis: Lumbar spinal stenosis with neurogenic claudication Activity: As commented below Non-emergency contact: Primary Care Provider Call non-emergency contact if: you have any medication questions Follow-up/Referrals: Jermaine Tucker DO [Primary Care Provider] - Diet: Regular Addtl Attending Provider Instructions: ACTIVITY RECOMMENDATIONS: SELF CARE INSTRUCTIONS AFTER THORACIC/LUMBAR FUSIONS 1. You may walk to your tolerance. It is good exercise for your legs and back. Expect some back and intermittent leg aches and pains. 2. You may perform "counter-top" level activities (make a sandwich, mohan with a project, etc.). 3. No bending or lifting of more than 10 pounds or back twisting of any nature (roll like a log when turning in bed). 4. You may ride in a car for 20-30 minutes at a time. No driving until after your first visit with your doctor. 5. Frequent changes of position and restricting sitting to 30 minutes at a time will help limit the amount of back spasms and stiffness you may experience. 6. You may discontinue the use of ambulatory aids (cane, crutches, etc.) once your strength and confidence allow. 7. You may database administrator the shower and let water strike your incision when you arrive home at least once daily. Do not take a tub bath, sit in a hot tub or go into a swimming pool until after your first recheck in the office. SPECIAL CARE INSTRUCTIONS: VERY IMPORTANT TO READ AND REVIEW A. Your surgical incision has been closed with a cosmetic suture under the skin that will dissolve in about 6 weeks. In 14 days, you can use a pair of clean scissors and cut the suture that is left outside of the skin at the ends of your incision. 1. The small skin tapes can be removed 7 days after surgery if they have not fallen off by that point. 2. You may keep the wound open to air as much as possible to promote healing after post-op day number 5 unless told otherwise by your doctor. 3. If you think the wound looks like it is becoming infected (redness or worsening drainage) and/or you are experiencing fever, chill or worsening back pain and muscle spasms, contact the office so that we may evaluate you as soon as possible. B. Complications are uncommon, but please contact us if you have any signs or symptoms of: 1. wound infection (fever higher than 102.5 degrees F, redness, separation of wound, drainage, or increasing pain from the incision) 2. blood clots in legs (pain, swelling, redness and warmth in legs) 3. urinary tract infection (fever higher than 102.5 degrees F, burning upon urination or increased frequency of urination) 4. nerve problems (inability to walk on your toes or heels, numbness, loss of bowel or bladder control) 5. any other symptoms that concern you C. Please call the office at if you have any concerns or questions about your operation or recovery. D. No smoking! Smoking drastically decreases the chance of a solid fusion. E. Do not take any anti-inflammatory medications (Indocin, Advil, Motrin, Aspirin, Naprosyn, etc.) as these may inhibit the chance of a solid fusion. Tylenol is okay to take for pain. MANAGING PAIN AFTER SPINAL SURGERY 1. Narcotic medication is intended for short-term use and will be provided for surgical pain. Surgical pain usually lasts for a period of 4-6 weeks. Narcotic medication includes Percocet, Vicodin, Darvocet, Tylenol #3 or Lortab. 2. Longer-term pain is more appropriately treated with non-narcotic medication such as Tylenol ES. 3. Muscle spasm is not appropriately treated with narcotics. Muscle relaxers such as Soma, Flexeril or Skelaxin can be used along with Tylenol ES. 4. Remember that we all live with some "aches and pains". This is not unusual or uncommon after an injury or as we get older. a. Back pain is expected and may include muscle spasms for 4 to 6 weeks after surgery. The pain should gradually improve. If the pain worsens for no apparent reason, please contact the office. b. Intermittent leg pain may also be experienced and should not be concerned about unless it worsens for no apparent reason. If so, please contact the office. 5. We will provide appropriate medication within the normal guidelines of their prescribed use. We will also be very cautious and aware of potential abuse and extended duration of patients' medication needs. a. Pain medications are for your comfort and to assist with sleep and rest so that the tissue can heal. They are not provided in order to return to normal activity and should not be used through the day. To do so or worsening pain at night can result from ongoing tissue damage and development of tolerance to the prescribed medicine. 6. Please allow 2-3 days to process refills. Prescriptions will not be mailed but must be picked up at the office. FOLLOW UP VISIT: Keep your scheduled follow-up appointment. Any questions, please call the office at . Addtl Line Server Provider Instructions: Follow up with your primary care provider regarding your diabetes, blood pressure and anemia. Your hemoglobin A1c here was found to be 8.5% (elevated). Monitor your blood pressure at home if able to, and discuss your numbers with your primary care doctor. Take iron supplement as prescribed and follow up with your primary care physician. Pending Studies at Discharge: No Stand-Alone Forms: [employer], Smoking Cessation Medications and DC Order Prescriptions: New tramadol 50 mg tablet 50 mg PO Q6H PRN (Reason: pain, moderate) Qty: 30 0RF oxycodone 5 mg tablet 5 mg PO Q6H PRN (Reason: pain) Qty: 30 0RF ferrous sulfate 325 mg (65 mg iron) Tablet,Delayed Release (Dr/Ec) 325 mg PO DAILY 20 Days Qty: 20 0RF Continued metoprolol succinate 100 mg Tablet Extended Release 24 Hr 100 mg PO QAM sertraline [Zoloft] 100 mg Tablet 100 mg PO HS verapamil 180 mg Tablet Extended Release 180 mg PO HS alprazolam [Xanax] 0.25 mg Tablet 0.25 mg PO TID PRN (Reason: Anxiety) omeprazole 20 mg Capsule,Delayed Release(Dr/Ec) 20 mg PO BID ezetimibe-simvastatin [Vytorin 10-20] 10-20 mg Tablet 1 tab PO HS calcium carbonate-vitamin D3 [Caltrate with Vitamin D3] 600 mg-20 mcg (800 unit) Tablet 1 tab PO QAM Jardiance 25 mg Tablet 25 mg PO HS aspirin 81 mg Capsule 81 mg PO QAM acetaminophen [Tylenol Extra Strength] 500 mg Tablet 1,000 mg PO BID PRN (Reason: Pain) irbesartan-hydrochlorothiazide 300-12.5 mg Tablet 1 tab PO DAILY Discharge Orders: Discharge Order (Routine); Ordered 03/03/24 Ordered By: Harshil Cummings Admission Data Admit Date/Time: 02/29/24 10:48 Attending Provider: Harshil Cummings Admit Provider: Harshil Cummings Primary Care Provider: Jermaine Tucker Other Providers: Deanna Doyle
[2024-03-03] MEDS: LOSARTAN POTASSIUM 50 MG TAB PO SCH (10:30)
== END 2024-03-03 11:47 | disposition home or self-care (01) | DRG 454 ==
LOC: ASU 06:09 → 3E 10:48